=== PATIENT | female | born 1980 | race Asian ===

== ENCOUNTER → 2023-09-27 10:22 | Outpatient (REF) | payer OTHER, SELFPAY | LOC: HWWDC 10:22 | PROVIDERS: ATTENDING PHYSICIAN Family Medicine | DX: Z12.31 Encounter for screening mammogram for malignant neoplasm of breast (principal) | CPT/HCPCS: 77063; 77067 ==

== ENCOUNTER → 2023-12-21 09:00 | Outpatient (REF) | payer OTHER, SELFPAY | LOC: HWRCS 09:00 | PROVIDERS: ATTENDING PHYSICIAN Family Medicine | DX: Q23.1 Congenital insufficiency of aortic valve (principal) | CPT/HCPCS: 93306 ==

== ENCOUNTER 2023-12-30 15:50 | Emergency (ER) | payer OTHER, SELFPAY ==
[2023-12-30 15:55] VITALS: BP 171/104
[2023-12-30 16:16] LABS: % Basophils 0.5 % (0-2); % Immature Granulocytes 0.3 % (0-0.5); % Lymphocytes 38.9 % (20.5-51.1); % Neutrophils 47.3 % (42.2-75.2); Absolute Eosinophils 0.4 10^3/uL (0-0.7); Absolute Monocytes 0.6 10^3/uL (0.1-0.6); Absolute Neutrophils 3.6 10^3/uL (1.4-6.5); Hematocrit 36.5 % (37.0-47.0); Hemoglobin 12.4 g/dL (12.0-16.0); Mean Corpuscular Volume 85.3 fL (81.0-99.0); Mean Platelet Volume 8.8 fL (7.4-10.4); Nucleated Red Blood Cells % 0 %; Platelet Count 263 10^3/uL (130-400); Red Blood Cell Count 4.28 10^6/uL (4.20-5.40); Red Cell Dist. Width 12.4 % (11.5-14.5); White Blood Cell Count 7.7 10^3/uL (4.8-10.8)
[2023-12-30 16:42] LABS: Troponin I < 0.012 ng/ml
[2023-12-30 16:44] VITALS: BP 156/91
[2023-12-30 16:47] LABS: ALT (SGPT) 11 U/L (0-35); AST (SGOT) 17 U/L (14-36); Albumin 4.1 g/dl (3.5-5.0); Alkaline Phosphatase 55 U/L (38-126); Blood Urea Nitrogen 13 mg/dl (7-17); Calcium 9.3 mg/dl (8.4-10.2); Carbon Dioxide 20 mmol/L (22-30); Chloride 106 mmol/L (98-107); Glucose 92 mg/dl (70-99); Sodium 140 mmol/L (135-145); Total Bilirubin 0.3 mg/dl (0.2-1.3); Total Protein 6.8 g/dl (6.3-8.2); eGFR > 60.00
[2023-12-30 17:00] VITALS: BP 148/92
[2023-12-30 17:38] VITALS: BMI 34.7
--- NOTE | 2023-12-30 17:58 | ED.GENMED ---
History of Present Illness
General
Chief Complaint: Blood Pressure Problem
Source: patient
Exam Limitations: none
Time Seen by Provider: 12/30/23 17:36
Nursing documentation reviewed up to this point in time: agreed with
History of Present Illness
History of Present Illness:
Patient to ED with complaint of elevated BP readings at home. She states she started checking her BP yesterday and is getting readings of 140's-150's/90's. She states she was diagnosed with a heart murmur 10 years ago and was told as she
approaches age 48 new symptoms may occur such as fatigue. States she had a routine echo done recently and bicuspid aoortic valve revealed. She has been evaluated by cardiology and will be evaluated by CT. No history of HTN. Admits to feeling
very anxious. Brought to ED by family for eval.
Past History
Past History
ED Past Medical History: Hypothyroidism
ED Past Surgical History: None
Review of Systems
Review of Systems
Allergies reviewed?: Yes
All Other Systems: ROS reviewed and negative except as documented in HPI and ROS
Constitutional: Reports no symptoms
EENT: Reports no symptoms
Respiratory: Reports no symptoms
Cardiac: Reports no symptoms (elevated BP readings at home)
ABD/GI: Reports no symptoms
: Reports no symptoms
Musculoskeletal: Reports no symptoms
Skin: Reports no symptoms
Neurological: Reports no symptoms
Psychiatric: Reports no symptoms
Phy Exam
General Physical Exam
General Presentation: well appearing and no apparent distress
General age: appears stated age
General Skin: warm and dry
General Habitus: normal
General Mental: alert
Cardiovascular Exam
Cardiovascular Exam: regular rate/rhythm
Pulmonary Exam
Pulmonary Exam: lungs clear and no respiratory distress
Musculoskeletal Exam
Musculoskeletal Exam: full ROM and neuro vasc intact
Skin Exam
Skin Exam: normal color, warm/dry and no rash
Psychiatric Exam
Psychiatric Exam: normal mood/affect
Course
Orders/Labs/Results
Orders:
Orders
12/30/23 16:00
Electrocardiogram (*1) Urgent
Reason for Study: Hypertension, Benign
12/30/23 16:01
EKG- Treatment ONCE
12/30/23 16:12
Complete Blood Count/With Diff Urgent
Comprehensive Metabolic Panel Urgent
Troponin I Urgent
Abnormal Lab Results
12/30/23
16:12
Hct 36.5 L %
(37.0-47.0)
Carbon Dioxide 20 L mmol/L
(22-30)
12/30/23 16:12
12/30/23 16:12
Vital Signs
Initial and Last Documented VS:
Initial Vital Signs
Temp Pulse Resp BP Pulse Ox
97.6 F 76 17 171/104 97
12/30/23 15:55 12/30/23 15:55 12/30/23 15:55 12/30/23 15:55 12/30/23 15:55
Last Documented Vital Signs
Temp Pulse Resp BP Pulse Ox
97.6 F 64 14 158/87 100
12/30/23 15:55 12/30/23 18:00 12/30/23 18:00 12/30/23 18:00 12/30/23 17:40
*Pulse Oximetry
Patient hypoxic: no
*EKG
Interpretation: normal
Rate: normal
Rhythm: sinus
*Critical Care Note
Total Time (30-74mins, 75-104mins- exclusive of procedures): Not Applicable
Update Note
Update Note:
MIldly elevated BP while iin dept. Labs, EKG reviewed with her. She will continue to log home BP readings and share with cardiology. No pharm intervention at this time. She just started monitoring BP yesterday. WIll discharge home. Given
instructions on s/s to return to ED and she is agreeble to plan.
ED Attending Note
-
Portions of this chart may have been created with voice recognition software.� Occasional wrong word or��sound alike� substitutions may have occurred due to the inherent limitations of voice recognition software.
Discharge Plan
Departure
Patient Disposition: Home (Routine Discharge)
Date of Disposition: 12/30/23
Time of Disposition: 17:58
Patient with high blood pressure during this ER visit?: Yes
Condition: Good
Covid-19: Not Applicable
Discharge Problem:
Elevated blood pressure reading
Instructions: Checking your blood pressure at home, BLOOD PRESSURE
Referrals:
Razia Leal, [Family Provider] -
Interventions
Interventions:
*Risk Screen - Suicide Last Done: 12/30/23 15:55
*General Assessment Last Done: 12/30/23 15:55
*Neglect/Abuse Screening Last Done: 12/30/23 15:55
ED- Fall Risk Assessment Last Done: 12/30/23 17:38
*ED COVID-19 Vaccine History Last Done: 12/30/23 17:39
*Nursing Disposition Last Done: 12/30/23 18:12
ED- Cardiac Assessment Last Done: 12/30/23 17:40
ED- Neurological Assessment Last Done: 12/30/23 17:40
ED- Pulmonary Assessment Last Done: 12/30/23 17:40
Discharge Date and Time
Print Language: HUNGARIAN
[2023-12-30 18:00] VITALS: BP 158/87
== END 2023-12-30 18:18 | disposition home or self-care (01) ==
LOC: EMR 15:50
PROVIDERS: Emergency Medicine; EMERGENCY PHYSICIAN Emergency Medicine; FAMILY PHYSICIAN Family Medicine
DX: R03.0 Elevated blood-pressure reading, without diagnosis of hypertension (principal); E03.9 Hypothyroidism, unspecified
CPT/HCPCS: 99284; 80053; 84484; 85025; 93005

== ENCOUNTER → 2024-01-01 15:02 | Outpatient (REF) | payer OTHER, SELFPAY | LOC: HWRAD 15:02 | PROVIDERS: ATTENDING PHYSICIAN Internal Medicine Cardiovascular Disease; FAMILY PHYSICIAN Family Medicine | DX: I77.819 Aortic ectasia, unspecified site (principal) | CPT/HCPCS: 71275; Q9967 ==

== ENCOUNTER → 2024-03-10 09:20 | Outpatient (REF) | payer OTHER, SELFPAY | LOC: RCS 09:20 | PROVIDERS: ATTENDING PHYSICIAN Internal Medicine Cardiovascular Disease; FAMILY PHYSICIAN Family Medicine | DX: I35.0 Nonrheumatic aortic (valve) stenosis (principal); I77.819 Aortic ectasia, unspecified site | CPT/HCPCS: 93306 ==

== ENCOUNTER 2024-06-23 06:21 | Day surgery (SDC) | payer OTHER, SELFPAY ==
[2024-06-23] VITALS (17 sets, daily range): BP systolic 92–132; BP diastolic 69–89; BMI 34.2
[2024-06-23 07:09] LABS: HCG, Urine Qualitative Screen Negative
[2024-06-23] MEDS: NSS 263 ML IV (07:18)
[2024-06-23] MEDS: LOW STRENGTH ASPIRIN 324 MG PO (07:22)
[2024-06-23] MEDS: NSS 1000 IV (09:13)
--- NOTE | 2024-06-23 09:32 | ITS.CL.CATH ---
Gluer Machine Operator - Catheterization
Cardiac Catheterization
Procedure Report:
LEFT HEART CATHETERIZATION
Date of Procedure: June 23, 2024
Referring: Dr. Humaira Trejo
PROCEDURES:
1. Coronary angiography
INDICATION: This is a 44-year-old female with a past medical history notable for bicuspid aortic valve and mild aortic root dilation who is scheduled for aortic valve replacement within the next several months. She has been evaluated by Dr. Cordova
and is now referred for coronary angiography.
ACCESS: Right radial artery, 5 Ukrainian sheath
HEMODYNAMICS : (mmHg)
AO (s/d) : 112/84
CORONARY FINDINGS
DOMINANCE: Right
LEFT MAIN: Normal
LEFT ANTERIOR DESCENDING: The LAD arises normally from the left main and runs in the anterior interventricular groove. The LAD has only minor irregularities over its course with no focal obstructive stenosis.
CIRCUMFLEX: The circumflex is a medium caliber nondominant vessel. The circumflex gives rise to 2 obtuse marginal branches which are widely patent.
RIGHT CORONARY ARTERY: The right coronary artery is a dominant vessel with a very anterior origin from the aorta. The right coronary artery is widely patent over its course
SEDATION: 50 minutes of procedural sedation was utilized. An independent medical billing coordinator was present to assist with and help manage/monitor the patient's level of consciousness and physiologic status
RADIATION SUMMARY: Fluoro Time (min): 17.8, Dose (mGy): 690, DAP (Gy.cm2) : 56.6
Closure Device: TR band
CONCLUSIONS
1. Nonobstructive coronary disease
RECOMMENDATIONS
1. Follow with Dr. Cordova as scheduled for aortic valve replacement
Copy to: Dr. Humaira Trejo
[2024-06-23] MEDS: NSS 250 IV (12:15)
== END 2024-06-23 12:48 | disposition home or self-care (01) ==
LOC: CATH 06:21
PROVIDERS: ATTENDING PHYSICIAN Internal Medicine Interventional Cardiology; FAMILY PHYSICIAN Family Medicine; OTHER PHYSICIAN Internal Medicine Cardiovascular Disease
DX: I25.10 Atherosclerotic heart disease of native coronary artery without angina pectoris (principal); I35.0 Nonrheumatic aortic (valve) stenosis; I10 Essential (primary) hypertension; Z79.890 Hormone replacement therapy
CPT/HCPCS: 99152; 81025; 93454; 93458; 99153; C1894; Q9967

== ENCOUNTER → 2024-06-30 09:07 | Outpatient (REF) | payer OTHER, SELFPAY | LOC: RCS 09:07 | PROVIDERS: ATTENDING PHYSICIAN Nurse Practitioner Acute Care; FAMILY PHYSICIAN Family Medicine; REFERRING PHYSICIAN Internal Medicine Cardiovascular Disease | DX: I35.0 Nonrheumatic aortic (valve) stenosis (principal) | CPT/HCPCS: 93306 ==

== ENCOUNTER 2024-09-09 07:32 | Inpatient (IN) | payer OTHER, SELFPAY ==
[2024-09-05 12:39] VITALS: BMI 34.1
[2024-09-05 13:18] LABS: % Basophils 0.3 % (0-2); % Eosinophils 3.7 % (0-6); % Immature Granulocytes 0.3 % (0-0.5); % Lymphocytes 28.7 % (20.5-51.1); % Monocytes 6.6 % (1.7-9.3); % Neutrophils 60.4 % (42.2-75.2); Absolute Eosinophils 0.3 10^3/uL (0-0.7); Absolute Lymphocytes 2.6 10^3/uL (1.2-3.4); Absolute Monocytes 0.6 10^3/uL (0.1-0.6); Absolute Neutrophils 5.4 10^3/uL (1.4-6.5); Hematocrit 39.7 % (37.0-47.0); Hemoglobin 13.4 g/dL (12.0-16.0); Mean Corp Hgb Conc. 33.8 g/dL (33.0-37.0); Mean Corpuscular Hgb 29.5 pg (27.0-31.0); Mean Corpuscular Volume 87.4 fL (81.0-99.0); Mean Platelet Volume 9.3 fL (7.4-10.4); Nucleated Red Blood Cells % 0 %; Platelet Count 282 10^3/uL (130-400); Red Blood Cell Count 4.54 10^6/uL (4.20-5.40); Red Cell Dist. Width 12.3 % (11.5-14.5)
[2024-09-05 13:30] LABS: INR 1.06; PT 14.1 Sec (11.4-14.6)
[2024-09-05 13:31] LABS: APTT 27.9 Sec (23.4-35.0)
[2024-09-05 13:37] LABS: Urine Albumin 1+ (Neg - Trace); Urine Bilirubin Negative (Negative); Urine Character Clear (Clear); Urine Color Yellow; Urine Glucose Negative (Negative); Urine Ketone Negative (Negative); Urine Leukocyte 2+ (Negative); Urine Nitrite Negative (Negative); Urine Occult Blood 2+ (Negative); Urine Specific Gravity 1.015 (<1.030); Urine Urobilinogen Negative (Neg - 1+)
[2024-09-05 13:44] LABS: ALT (SGPT) 13 U/L (0-35); AST (SGOT) 17 U/L (14-36); Albumin 4.6 g/dl (3.5-5.0); Alkaline Phosphatase 57 U/L (38-126); Blood Urea Nitrogen 11 mg/dl (7-17); Calcium 9.7 mg/dl (8.4-10.2); Carbon Dioxide 24 mmol/L (22-30); Chloride 104 mmol/L (98-107); Estimated Creatinine Clearance 96 ml/min; Glucose 76 mg/dl (70-99); Potassium 4.3 mmol/L (3.5-5.1); Sodium 137 mmol/L (135-145); Total Bilirubin 0.4 mg/dl (0.2-1.3); Total Protein 7.9 g/dl (6.3-8.2); eGFR > 60.00
[2024-09-05 14:36] LABS: Glycohemoglobin (HgbA1c) 5.4 % (4.0-5.6)
[2024-09-05 14:41] LABS: Urine Squamous Cell >30 /LPF (Few)
[2024-09-05 14:42] LABS: Urine Bacteria Few (Negative); Urine White Cell 16-20 /HPF (0-5)
--- NOTE | 2024-09-05 14:48 | CM ---
Met with and Mrs. Suh in [facility]'s. She states prior to admission she resides with her spouse and thirteen year old daughter in a two story home with one step to enter. She states she has a full flight of steps to get to bedroom/full bathroom.
She states she has a powder room on the first floor. She states prior to admission she was independent with ambulation and adls. She states she does not have any DME in the home. She states she has a prescription plan. She states her spouse will
be home to assist in her care in needed. The discharge plan is to return home with her spouse and daughter and a home visit by the Transitional Care Nurse when medically stable.
We reviewed pre-op and post-op routines. We reviewed the shower instructions. She has the soap, written instructions and the Cardiothoracic Surgery Educational Booklet. We also reviewed restrictions including sternal precautions and driving
restrictions. We discussed a home visit by the Transitional Care Nurse. She is agreeable to a home visit. The plan is for AVR on August,[id number].
[2024-09-09] VITALS (21 sets, daily range): BP systolic 98–138; BP diastolic 64–96; BMI 36.2
--- NOTE | 2024-09-09 07:56 | PTCARENOTE ---
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 pt clipped and prepped w G. Admission questions and med rec completed. Pt oriented to CVICU. Plan of care reviewed and questions encouraged.
[2024-09-09] MEDS: MAGNESIUM OXIDE 500 MG PO (08:06)
[2024-09-09] MEDS: LOPRESSOR 25 MG PO (08:06)
[2024-09-09] MEDS: PROTONIX 40 MG PO (08:06)
[2024-09-09] MEDS: BACTROBAN 2% OINTMENT 1 APPLIC NASAL ×2 (08:06→20:35)
[2024-09-09 09:30] LABS: HCG, Urine Qualitative Screen Negative
[2024-09-09 11:19] LABS: ACT+ - POC 225 Seconds (82-134)
--- NOTE | 2024-09-09 11:25 | W.CVOR.SURPR ---
CVOR Surgeon Immed Pre Op
-
I have examined this patient prior to performance of the scheduled procedure.
The patient's condition is unchanged from the time of the dictated/written History and
Physical and the patient is able to undergo the scheduled procedure.
[facility]
[2024-09-09 11:26] LABS: ACT+ - POC 134 Seconds (82-134)
[2024-09-09 12:03] LABS: Urine Albumin Negative (Neg - Trace); Urine Bilirubin Negative (Negative); Urine Character Clear (Clear); Urine Color Yellow; Urine Glucose Negative (Negative); Urine Ketone Negative (Negative); Urine Leukocyte Negative (Negative); Urine Nitrite Negative (Negative); Urine Occult Blood 4+ (Negative); Urine Urobilinogen Negative (Neg - 1+)
[2024-09-09 12:10] LABS: B.E. - POC -1.1 mmol/L; Glucose - POC 81 mg/dl (70-99); HCO3 - POC 24 mmol/L (21-28); Hematocrit - POC 33 % PCV (37-47); Hemodilution- POC No; Hemoglobin Calculated - POC 11.1; Ionized Calcium - POC 1.15 mmol/L (1.15-1.33); Lactate - POC 1.16 mmol/L (0.36-0.75); O2 Saturation %Calculated-POC 99.8 % (94-98); PCO2 - POC 40 mmHg (35-48); PO2 - POC 233 mmHg (83-108); POC Comment PRE; Potassium - POC 3.6 mmol/L (3.5-5.1); Sodium - POC 142 mmol/L (136-145); Specimen Type - POC Arterial; pH - POC 7.39 (7.35-7.45)
[2024-09-09 12:31] LABS: B.E. - POC -2.6 mmol/L; Glucose - POC 73 mg/dl (70-99); HCO3 - POC 22 mmol/L (21-28); Hematocrit - POC 29 % PCV (37-47); Hemodilution- POC No; Hemoglobin Calculated - POC 9.8; Ionized Calcium - POC 1.08 mmol/L (1.15-1.33); Lactate - POC 1.24 mmol/L (0.36-0.75); O2 Saturation %Calculated-POC 99.7 % (94-98); PCO2 - POC 38 mmHg (35-48); PO2 - POC 202 mmHg (83-108); Potassium - POC 3.8 mmol/L (3.5-5.1); Sodium - POC 144 mmol/L (136-145); Specimen Type - POC Arterial; pH - POC 7.37 (7.35-7.45)
[2024-09-09 13:19] LABS: B.E. - POC 0.2 mmol/L; Glucose - POC 101 mg/dl (70-99); HCO3 - POC 23 mmol/L (21-28); Hematocrit - POC 28 % PCV (37-47); Hemodilution- POC Yes; Hemoglobin Calculated - POC 9.5; Ionized Calcium - POC 0.97 mmol/L (1.15-1.33); Lactate - POC 1.01 mmol/L (0.36-0.75); PCO2 - POC 30 mmHg (35-48); PO2 - POC 382 mmHg (83-108); POC Comment CPB; Potassium - POC 4.5 mmol/L (3.5-5.1); Sodium - POC 141 mmol/L (136-145); Specimen Type - POC Arterial; pH - POC 7.49 (7.35-7.45)
[2024-09-09 13:47] LABS: Urine Amorphous Seen; Urine Red Blood Cell 30-40 /HPF (0-2); Urine White Cell 0-2 /HPF (0-5)
[2024-09-09 13:48] LABS: B.E. - POC 0.5 mmol/L; Glucose - POC 125 mg/dl (70-99); HCO3 - POC 24 mmol/L (21-28); Hematocrit - POC 29 % PCV (37-47); Hemodilution- POC Yes; Hemoglobin Calculated - POC 9.9; Ionized Calcium - POC 1.03 mmol/L (1.15-1.33); Lactate - POC 1.11 mmol/L (0.36-0.75); O2 Saturation %Calculated-POC 99.9 % (94-98); PCO2 - POC 35 mmHg (35-48); PO2 - POC 316 mmHg (83-108); POC Comment WARM; Potassium - POC 4.6 mmol/L (3.5-5.1); Sodium - POC 143 mmol/L (136-145); Specimen Type - POC Arterial; pH - POC 7.45 (7.35-7.45)
[2024-09-09 13:59] LABS: ACT+ - POC 134 Seconds (82-134)
[2024-09-09 14:06] LABS: B.E. - POC -3.8 mmol/L; Glucose - POC 117 mg/dl (70-99); HCO3 - POC 22 mmol/L (21-28); Hematocrit - POC 26 % PCV (37-47); Hemodilution- POC Yes; Hemoglobin Calculated - POC 8.7; Ionized Calcium - POC 1.21 mmol/L (1.15-1.33); Lactate - POC 1.92 mmol/L (0.36-0.75); O2 Saturation %Calculated-POC 99.6 % (94-98); PCO2 - POC 43 mmHg (35-48); PO2 - POC 199 mmHg (83-108); POC Comment POST; Potassium - POC 3.8 mmol/L (3.5-5.1); Sodium - POC 143 mmol/L (136-145); Specimen Type - POC Arterial; pH - POC 7.32 (7.35-7.45)
--- NOTE | 2024-09-09 14:13 | CON.INTV ---
Consultation
Consultation Request
Date/Time Consultation Requested: 09/09/2024 - 140
Date/Time Consultation Performed: 09/09/2024 - 1412
Requesting Provider: Anna Estrada PA-C
Performing Provider: Dr. Morrison
Reason for Consultation: s/p SAVR
Medical History
-
Chief Complaint: Elective aortic valve replacement
History of Present Illness:
44-year-old female non-smoker with a past medical history of severe aortic valve stenosis, hypothyroidism, CAD, hypertension, and mild aortic ectasia who presents for elective aortic valve replacement. Patient known to the cardiothoracic surgery
service with last visit on 07/18/[address] Cordova. Patient has known severe aortic valve stenosis with mild aortic root dilation, seen on recent echo from 06/30/2024. Peak/mean gradients across the AVR 87/55 mmHg, respectively with an XANDER of 0.63
cm�. Since the echocardiogram in February 2024 her aortic stenosis had worsened going from a mean gradient of 39 up to 55 mmHg with the XANDER decreasing from 0.8 to 0.63 cm�. Patient discussed surgical intervention with Dr. Cordova and patient has
agreed to a cardiothoracic procedure, and today she underwent a mini-sternotomy with surgical aortic valve replacement with a 21 mm mechanical aortic valve. There were no immediate complications and she was transferred to the CVICU postoperatively
with Carbonating Stone Cleaner services consulted for additional management/recommendations.
When I saw the patient, she was intubated on a pressure support trial at 5/5 at 40% FiO2 with PIP 11 cmH2O, VTe 431 cc and breathing at 16 breaths/min. She's saturating 98% with heart rate 81, BP via A-line: 114/62, PAP 26/12, and CO/CI: 4.74/2.43,
respectively. Mediastinal chest tube x [address]. Currently sedated on Precedex at 0.1 mcg/kg/hr and on insulin drip at 1.5 units/hr.
PMHx: Aortic valve stenosis, bicuspid aortic valve, hypothyroidism, PCOS, bicuspid aortic valve, CAD, hypertension, history of constipation, mild aortic ectasia
PSHx: Noncontributory
Past Medical History
Past Medical History: Other (Above as per HPI)
Past Surgical History: Other (Above as per HPI)
Social History
Tobacco: Non-smoker
Alcohol: Occasional (Wine occasionally)
Drug: None
Personal:
Living: With Family
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
Family History
Family History: CAD (Father + mother), Diabetes (Mother), Hypertension (Mother) and Other (Father: Hyperlipidemia; Daughter: PDA repair as an infant)
Allergies / Home Medications
Allergies
Allergy/AdvReac Type Severity Reaction Status Date / Time
adhesive tape Allergy SENSITIVITY Verified 09/02/24 16:24
Home Medications
�Medication �Instructions �Recorded �Confirmed �Last Taken �Type
cholecalciferol (vitamin D3) 25 25 mcg PO HS 06/23/24 09/09/24 09/01/24 History
mcg (1,000 unit) capsule (Vitamin
D3)
cyanocobalamin (vitamin B-12) 500 500 mcg PO HS 06/23/24 09/09/24 09/01/24 History
mcg tablet (Vitamin B-12)
desogestrel 0.15 mg-ethinyl 1 tab PO HS 06/23/24 09/09/24 09/01/24 History
estradiol 0.03 mg tablet (Apri)
ferrous sulfate 325 mg (65 mg 325 mg PO HS 06/23/24 09/09/24 09/07/24 History
iron) tablet (iron)
levothyroxine 150 mcg tablet 150 mcg PO DAILY 06/23/24 09/09/24 09/09/24 05:00 History
losartan 50 mg-hydrochlorothiazide 1 tab PO HS 06/23/24 09/09/24 09/06/24 History
12.5 mg tablet
metformin 500 mg tablet,extended 500 mg PO HS 06/23/24 09/09/24 09/07/24 17:00 History
release 24 hr
Review of Systems
-
Unable to Obtain full review of systems at this time due to: Patient Intubation
Vitals / Labs / Diagnostic Testing
Vital Signs
Temp Pulse Resp BP Pulse Ox
98.1 F 79 18 138/96 100
09/09/24 08:01 09/09/24 08:01 09/09/24 08:01 09/09/24 07:46 09/09/24 08:01
Microbiology
09/05/24 12:34 Nose MRSA Screen - Final
No Methicillin Resistant Staphylococcus aureus isolated.
Diagnostic Testing:
Physical Exam
-
HEENT: Normocephalic, Anicteric and Other (ETT in place)
Cardiovascular: S1/S2 and Peripheral Edema (negative)
Respiratory: Wheeze (negative), Rhonchi (negative), Other (Mechanical breath sounds heard bilaterally) and Other (Mediastinal chest tube x 1)
GI: Soft, Non Distended, Non Tender and Normal Bowel Sounds
Neurology: Tremors (negative) and Other (Sedated)
Skin: Warm and Dry
General: Respiratory Distress (negative), Comfortable, Fever (negative) and Chills (negative)
Assessment
-
Assessment: 44-year-old female non-smoker with a past medical history of severe aortic valve stenosis, hypothyroidism, CAD, hypertension, and mild aortic ectasia who presents for elective aortic valve replacement. Patient known to the
cardiothoracic surgery service with last visit on 07/18/[address] Cordova. Patient has known severe aortic valve stenosis with mild aortic root dilation, seen on recent echo from 06/30/2024. Peak/mean gradients across the AVR 87/55 mmHg,
respectively with an XANDER of 0.63 cm�. Since the echocardiogram in February 2024 her aortic stenosis had worsened going from a mean gradient of 39 up to 55 mmHg with the XANDER decreasing from 0.8 to 0.63 cm�. Patient discussed surgical intervention
with Dr. Cordova and patient has agreed to a cardiothoracic procedure, and on 09/09/2024 she underwent a mini-sternotomy with surgical aortic valve replacement with a 21 mm mechanical aortic valve. There were no immediate complications and she was
transferred to the CVICU postoperatively with Carbonating Stone Cleaner services consulted for additional management/recommendations
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
Impression:
#Bicuspid aortic valve with severe aortic valve stenosis s/p mini-sternotomy with surgical aortic valve replacement with 21 mm mechanical aortic valve (POD #0)
#Lactic acidosis
#Hypocalcemia
#Hypothyroidism
#PCOS
#Nonobstructive CAD
#Hypertension
Plan:
Ventilator settings reviewed
FiO2 will be weaned to maintain SpO2 >90-94%
Minute ventilation will be adjusted
Arterial blood gases will be monitored
Spontaneous breathing trial will be attempted with hopeful extubation after anesthesia/sedation wear off
prn nebulized bronchodilators - not currently bronchospastic
Pulmonary artery catheter parameters will be followed
Pressors/antihypertensive/inotropes/diuretics will be provided as needed
Maintain MAP>65
Replete electrolytes with K>4, Mg>2
Monitor chest tube output (mediastinal chest tube x 1)
Monitor hemoglobin
Monitor platelet count and coags
Transfuse blood products as needed to maintain Hb>7g/dL, plt>50k (given post-operative status)
CT surgery managing chest tubes
Monitor blood sugar to maintain euglycemia with goal BG 110-140
Insulin drip per protocol
Aspiration precautions
VAP prevention protocol
DVT prophylaxis
Early nutrition
Early mobilization
Critical care statement: A total of 46 minutes of critical care time was provided for this patient today. This includes management of ventilator, spontaneous breathing trial, arterial blood gases, pressors, of unstable vital signs, evaluation of the
patient at bedside, reviewing the patient's pertinent medical records including radiographs, microbiology, laboratory evaluations, and discussion with primary team and critical care nursing.
--- NOTE | 2024-09-09 14:26 | W.PN.CT.SURG ---
CT Surgery Operative Note
-
CARDIAC SURGERY OPERATIVE REPORT
Preoperative Diagnosis: Aortic valve true type 0 bicuspid morphology with severe stenosis
Postoperative Diagnosis: Same
Procedure(s) Performed:
1. Upper mini sternotomy to the third intercostal space with central aortic and peripheral venous cannulation
2. Surgical aortic valve replacement [21 mm mechanical aortic valve]
3. Placement of temporary ventricular pacing wire
4. Transesophageal echocardiography
Date of Surgery: 09/09/2024
Comorbidities:
1. Bicuspid aortic valve, type 0 morphology
2. Severe aortic valve stenosis, symptomatic
3. Moderate left ventricular hypertrophy with mild LVOT gradient
4. Hypothyroidism
5. PCOS
6. Nonobstructive CAD
7. Hypertension
8. Mild aortic ectasia, ascending aorta
Attending Surgeon: Shayne Cordova MD, MS
Scrub and Circulating RNs: Dawna Colunga RN, Cira Powell RN
Assistants: Anna Munson PA-C (first assisted, tissue exposure, retraction, wound closure, etc. under my direction)
Anesthesiology: Dio Card MD and Aleena Marshall CRNA
Athletic Shoe Designer: Candice Sears CCP
Anesthesia: GETA
EBL: per perfusion records
Products: None, 250 of cell saver scavenged from the field
CPB Time: 68 minutes
Aortic Cross Clamp Time: 50 minutes
Indication(s) for Procedures: This is a 44-year-old female been following for quite some time. She has known severe aortic valve stenosis however was asymptomatic initially. More recently over the last several weeks she has become significantly
symptomatic and unable to load and unload the button maker. Given her sudden change in symptoms, severe gradients, we moved her surgery forward. She is offered a mechanical valve which is reasonable for her age category.
Aortic Valve Description: True bicuspid valve, type 0 morphology with no raphae, left and right coronary ostia the normal anatomic positions with a very large left main
Findings: Left ventricular ejection fraction preoperatively 60% with no regional wall motion abnormalities. She did have moderate hypertrophy of the left ventricle and severe aortic valve stenosis. Following surgery, her left ventricular ejection
fraction increased to approximately 70% with no inotropic support. There was close to obliteration of her LV cavity with age contraction. Cardiac index was well over 3 without inotropic support. Mean gradient across the new mechanical valve was 8
mmHg, LVOT gradient was also 8 mmHg indicating some subvalvular component given her hypertrophy. There were no paravalvular leaks only of the associated washing jets expected with this mechanical prosthesis. Both leaflets had excellent excursion
on the device. A total of 12 nonpledgeted 2 Ethibond sutures [1 was pledgeted at the left non commissure as the tissue appeared to be friable here] securing a 21 [address] prosthesis [address] place using core knots. Left and right coronary ostia
were inspected and free of any obstruction. The valve was oriented in an antianatomic fashion perpendicular to the aorto mitral curtain. She did not require any inotropic support. She did not require any blood products and received 250 cc of
scavenged blood from the field in the form of Cell Saver. She regained sinus rhythm after a very short period of ventricular pacing.
Specimen(s): Aortic valve with.
Prosthesis:
1. 21 mm On-X mechanical aortic valve prosthesis, serial #[id number]
2. [place] hemostatic agent, serial number [id number]
3. X plate (8 holes) plate + 12mm screws x 6, 16mm screw x 2
4. Straight (8 hold) plate + 12mm screws x 6
Description of Procedure: The patient was taken to the operating room. Their identity and procedure to be performed were verified and they were positioned supine on the operating table. Induction via general anesthesia with endotracheal intubation
was performed and central venous access and arterial monitoring were inserted. A preoperative transesophageal echocardiogram was performed to assess cardiac function and valvular function. The patient was then prepped and draped from chin to feet in
a sterile fashion. A preoperative time-out was performed with all members of the team present. A upper midline chest incision was performed along with vince sternotomy, T-ing at the 3rd intercostal space. The innominate vein was isolated. Full
heparinization was given (a total of 50,000 units). We created a pericardial well. The aortic cannulation site was chosen where it was soft, pliable, and free of calcium. Common femoral vein access was done under ultrasound guidance using Seldinger
technique. Venous cannulation was done under CALI guidance. The arterial cannula was inserted in the ascending aorta. The arterial cannula line had an appropriate bounce and correlating pressures with test dosing. Next, a root vent/antegrade cannula
was inserted into the ascending aorta. The ACT was confirmed to be over 400 and retrograde autologous priming was performed before commencing cardiopulmonary bypass. The pulmonary artery was away from the aorta to facilitate a clamp site
and aortotomy. A pulmonary vent was placed right superior pulmonary vein and secured. The aortic cross-clamp was applied after decreasing the flow on the bypass and mean arterial pressure. A total of 1.2L initial dose of antegrade Del-Nido
cardioplegia solution was given and planned for re-dosing every 75 minutes as necessary. There was rapid electro-mechanical arrest of the heart at 300 cc of cardioplegia. The left ventricle was observed for distention on echocardiogram and manual
palpation. Cold slush was placed into the pericardial well and cooled to 34 degrees centigrade.
Carbon dioxide was used to flood the field. We manually identified the location of the right coronary take off. An aortotomy was made approximately 2cm above the sinotubular junction. The location of both left and right coronary vessels were
visualized in the root.The leaflets were excised and sent for pathological assessment. The annulus was debrided of any calcium being mindful of the annulus and membranous septum. The root and left ventricular outflow tract were thoroughly irrigated
to remove any debris. A total of 12 Non-pledgeted (1 was pledgetted toward the L N commissure) 2-0 ethibond annular sutures were placed [id number] circumferentially. These were brought through the sewing cuff of the prosthetic valve which as then
parachuted into place. The left and right coronary ostia were visualized and were unobstructed by the valve. A Cor-Knot device was used to secure the annular sutures. The valve was inspected and was well seated. Ventricular pacing wires placed at
the base of the RV after retracting the heart cephalad. The aortotomy was approximated with 4-0 prolene in two layers. De-airing maneuvers were performed and temporary bipolar ventricular pacing wires were placed on the base of the right ventricle.
The patient was placed in a trendelenburg position and flows on bypass were lowered. The aortic cross clamp was removed and flows were slowly brought back up. The aortotomy appeared hemostatic. Transesophageal echocardiography revealed no
paravalvular leak and appropriate prosthetic function with it's 4 washing jets. Once de-airing was satisfactory, the LV and root vents were removed. After verifying acceptable parameters, we initiated weaning from cardiopulmonary bypass. Once we
were off cardiopulmonary bypass, the venous cannula was clamped and removed. A test dose of protamine was administered and the patient was monitored for any adverse reaction before resuming protamine. Once half of the protamine dose was delivered,
pump suckers were turned off and the systolic blood pressure was lowered for aortic decannulation. The aortic cannula was removed and pursestrings were tied down. All cannulation sites were oversewn with a 4-0 prolene. The aortotomy suture line was
inspected and hemostasis was confirmed. Mediastinal hemostasis was obtained. One 24Fr Elio drains were placed within the pericardium. The sternum was approximated with 2 #7 stainless steel wires, a signle #8 double stainless steel wire, an X plate
and a straight plate. Fascia was approximated with #1 vicryl suture. The subcutaneous, dermis and epidermis were closed in layers in a running fashion. The femoral venous access site was closed with a large buttressed pursestring. The skin wound was
cleansed and dressed.
All instrument, sponge, and needle counts were confirmed to be correct x 2 at the end of the operation. The patient was transferred to the cardiac intensive care unit in critical but stable condition.
I, Dr. Shayne Cordova, was present, scrubbed for, and performed all critical elements of this procedure.
Shayne Cordova MD, MS
Cardiothoracic Surgeon
[facility]
This operative dictation was created using the [employer]St[employer] dictation system. Please excuse any grammatical, typographical, or 'sound alike' errors
--- NOTE | 2024-09-09 14:31 | W.PN.UPDATE ---
Update Note
Progress Note Update
IV fluids: 1000
Crystalloid: 1000
U.O.: 400
UF: 1100
Blood: None
Wires: V
Inotropes: none
Pressors: levophed on standby
Sedatives: precedex
NEURO: sedated on precedex, pupils +2mm B/L
RESP: #8OT @24cm> 12/600/40/5; Lungs clear B/L. 2 mediastinal (10cc on arrival) chest tubes to -20cm suction. Sanguineous drainage
CV: RRR +S1, S2, no S3, no rub, no murmur. Dermabond to median sternotomy. RIJ w/[place] locked @ 39cm. PA 33/14; CI 2.96
ABD: round, soft, no BS
EXT: no edema, +2/4 DP pulses B/L, no femoral bruit, right radial A-line intact
: Graves with clear yellow urine
A/P: POD #0 s/p Surgical aortic valve replacement [21 mm mechanical aortic valve] via mini-sternotomy
CALI: EF Overall LVEF is at least 65% with no new RWMA. The AVR is well seated allowing normal tilting disc motion. No AI.
- wean and extubate
- Monitor CT and urine output
- Follow up labs and CXR
- SBP goal 90-130
- Will start ASA tonight; will start coumadin and low dose heparin tomorrow
- EKG pending and will send to cards; prolong QTC will continue to monitor
- Cards consulted
- will need instruction regarding antibiotic prophylaxis for dental and invasive procedures
# acute surgical blood loss anemia-expected
- trend CBC
# DM2
- Continue insulin gtt
- will resume metformin as able
--- NOTE | 2024-09-09 14:40 | CM ---
Chart reviewed. Patient is in the OR today. Patient is independent of ADLS, lives with her and 13 yo daughter in a [address], 1 [address]. Plan is for the patient to return home with CT Transitional RN. CM to follow
[2024-09-09 14:50] LABS: B.E. - POC 4.3 mmol/L; Glucose - POC 87 mg/dl (70-99); HCO3 - POC 29 mmol/L (21-28); Hematocrit - POC 29 % PCV (37-47); Hemodilution- POC Yes; Hemoglobin Calculated - POC 9.9; Ionized Calcium - POC 0.99 mmol/L (1.15-1.33); Lactate - POC < 0.30 mmol/L (0.36-0.75); PCO2 - POC 44 mmHg (35-48); PO2 - POC 491 mmHg (83-108); POC Comment CPB; Potassium - POC 3.6 mmol/L (3.5-5.1); Sodium - POC 143 mmol/L (136-145); Specimen Type - POC Arterial; pH - POC 7.43 (7.35-7.45)
[2024-09-09 14:52] LABS: ACT+ - POC > 1003 Seconds (82-134)
[2024-09-09 14:52] LABS: ACT+ - POC > 1003 Seconds (82-134)
[2024-09-09 14:52] LABS: ACT+ - POC > 1003 Seconds (82-134)
[2024-09-09 14:52] LABS: ACT+ - POC > 1003 Seconds (82-134)
[2024-09-09 15:01] LABS: Glucose - Point of Care 105 mg/dl (70-99)
[2024-09-09] MEDS: ANCEF 10 IV ×2 (15:09)
[2024-09-09 15:11] LABS: B.E. -2.5 mmol/L; HCO3 22.5 mmol/L (21-28); Ionized Calcium 1.14 mMOL/L (1.15-1.33); O2 Saturation % 98.3 % (94-98); PCO2 39 mmHg (32-35); PO2 133 mmHg (83-108); Potassium 4.1 mMOL/L (3.5-5.1); Sodium 138 mMOL/L (136-145); pH 7.37 (7.35-7.45)
[2024-09-09 15:14] LABS: Mixed Venous O2 Saturation 79.8 %
[2024-09-09] MEDS: TYLENOL PO ×2 (15:20→21:30)
[2024-09-09] MEDS: NSS 500 IV (15:20)
[2024-09-09 15:23] LABS: INR 1.58; PT 19.1 Sec (11.4-14.6)
[2024-09-09 15:24] LABS: APTT 29.9 Sec (23.4-35.0)
[2024-09-09 15:27] LABS: Blood Urea Nitrogen 9 mg/dl (7-17); Estimated Creatinine Clearance 105 ml/min; Glucose 107 mg/dl (70-99); Magnesium 2.5 mg/dl (1.6-2.3)
--- NOTE | 2024-09-09 15:30 | PTCARENOTE ---
pt received from [facility] @~1440, sedated on Precedex gtt, RASS -5. core temp 96.3F, bear hugger applied as ordered. SR on the monitor, HR 70-80s. V wire in place, VVI 30/5. SBP goal 90-130, Cardene gtt titrated as ordered. PAP 20-30s/10s, CVP~6-8. CI
>2. palpable pulses, no edema. pt mechanically ventilated, ETT #8.0, 22cm@lip. SIMV 12, TV 600, PEEP 5, FIO2 40%. POX 99%. oral hygiene performed. lungs clear anteriorly. CTx1, no air leak or crepitus noted. pt abdomen s/n, hypoactive BS. Graves in
place, clear yellow urine, Graves care performed. sternal incision TYRONE, approximated, surgical bra in place. CT dressing c/d/i. R groin c/d/i. RIJ cordis/swan maintained. L radial Ines flushed, zeroed, and calibrated. PIV. insulin gtt running per
protocol. lab work drawn, EKG performed, CXR completed. see worklist for VS, I&O, and assessment.
[2024-09-09 15:41] LABS: Hemoglobin 11.1 g/dL (12.0-16.0); Platelet Count 162 10^3/uL (130-400)
[2024-09-09] MEDS: PACERONE PO (15:42)
[2024-09-09] MEDS: NEURONTIN PO (15:42)
[2024-09-09] MEDS: CALCIUM GLUCONATE 100 IV (15:45)
[2024-09-09 15:57] LABS: Glucose - Point of Care 131 mg/dl (70-99)
--- NOTE | 2024-09-09 16:08 | W.PN.CARDCBS ---
Addendum entered and electronically signed by Ced Sanders MD 09/09/24 16:42:
I saw and examined the patient.
The Recruitment Coordinator's note was reviewed and I agree with the note.
Comment: Briefly, 44-year-old woman past medical history of bicuspid aortic valve with severe aortic stenosis who underwent aortic valve replacement earlier today with On-X mechanical prosthesis
At time my evaluation she was intubated and sedated in the CVICU
Not requiring pressor or inotrope support
Filling pressures at goal based on invasive hemodynamics
Warm and well-perfused on exam
Maintaining sinus rhythm on telemetry
Agree with aspirin/metoprolol/amiodarone
Warfarin when safe from CT surgery standpoint
We will continue to follow with you
Original Note:
Today's Communication / Plan
-
Monitor rhythm and QT on telemetry
Plan for weaning of sedation and anticipated extubation this evening
Wean Cardene drip as vitals allow
Start rectal aspirin this evening with likely transition to Coumadin and heparin in a.m.
Usual postop care
Impression / Plan
-
PCP: Razia Leal
It Quality Assurance Analyst: Humaira Trejo
Impression:
Severe symptomatic bicuspid aortic stenosis
s/p aortic valve replacement with #21 mm On-X mechanical aortic valve prosthesis via mini sternotomy 09/09/2024, Dr. Cordova
Postop left bundle branch block
Mild aortic ectasia, ascending aorta
Moderate LVH with mild LVOT gradient
Hypothyroidism
Polycystic ovarian syndrome
Hypertension
Echocardiogram 06/30/2024: left ventricular ejection fraction 55 to 60%. Mild septal hypertrophy (1.3 cm).� Normal right ventricle. Trace MR. Bicuspid aortic valve with severe aortic valve stenosis peak/mean gradient 87/55 mmHg and aortic valve area
0.63 cmsq with trace AI.� Trace TR.
Left heart catheterization 06/23/2024 with nonobstructive coronary disease.
Plan:
- Elective admission 09/09/2024 for severe symptomatic aortic stenosis
- s/p aortic valve replacement with #21 mm On-X mechanical aortic valve prosthesis via mini sternotomy 09/09/2024, Dr. Cordova
- Seen immediately postop, intubated and sedated. Plan to wean sedation with anticipated extubation later this evening
- Hemodynamically stable however on Cardene at 2.5 mg/hr. Wean as tolerated
- Personally reviewed postop EKG demonstrating normal sinus rhythm with incomplete left bundle branch block, QTc 562 ms. Left bundle branch block is new postoperatively. Continue to monitor on telemetry.
- Postop chest x-ray with some right mid upper lobe subsegmental atelectasis without pneumothorax. ET tube in tip of proximal right mainstem bronchus. Tube repositioned by respiratory. Repeat chest x-ray pending.
- Postop hemoglobin 11.1, preop 13.4. Continue to monitor and trend
- Given mechanical valve plan to start aspirin this evening then transition to Coumadin and low-dose heparin in a.m. of 09/10/2024
- Usual postop care.
Progress Note - It Quality Assurance Analyst
Subjective
Date of Service: September 09, 2024
Patient seen and examined immediately postoperatively. Patient remains intubated and sedated on Cardene drip.
Objective
Labs:
09/09/24 15:00
Labs
Hgb 11.1 g/dL (12.0-16.0) L 09/09/24 15:00
Hct 33.0 % (37.0-47.0) L 09/09/24 15:00
Plt Count 162 10^3/uL (130-400) D 09/09/24 15:00
PT 19.1 Sec (11.4-14.6) H 09/09/24 15:00
INR 1.58 09/09/24 15:00
APTT 29.9 Sec (23.4-35.0) 09/09/24 15:00
Sodium 137 mmol/L (135-145) 09/05/24 12:34
Potassium 4.3 mmol/L (3.5-5.1) 09/05/24 12:34
BUN 9 mg/dl (7-17) 09/09/24 15:00
Creatinine 0.7 mg/dL (0.6-1.0) 09/09/24 15:00
Glucose 107 mg/dl (70-99) H 09/09/24 15:00
Vital Signs and I&O:
Vital Signs
Temp Pulse Resp BP Pulse Ox
96.9 F L 76 10 103/65 97
09/09/24 16:00 09/09/24 16:00 09/09/24 16:00 09/09/24 15:41 09/09/24 16:00
Vital Signs
Temp Pulse Resp BP Pulse Ox
96.9 F L 76 10 103/65 97
09/09/24 16:00 09/09/24 16:00 09/09/24 16:00 09/09/24 15:41 09/09/24 16:00
Intake & Output
09/07/24 09/08/24 09/09/24 09/10/24
06:59 06:59 06:59 06:59
Intake Total 237.6 / 237.6
Output Total 555 / 555
Balance -317.4 / -317.4
Physical Exam
Physical Exam
GEN: Intubated and sedated; Ivan hugger and tach
HEENT: supple, anicteric, mmm
LUNGS: CTA anteriorly, no wheezes/rales
CV: Reg, S1/S2, no murmur, rub or gallop
ABD: soft, BS+, NT/ND
EXT: No edema, clubbing or cyanosis
NEURO: Unable to assess as patient currently intubated and sedated
SKIN: No rash,, warm, dry, pink
--- NOTE | 2024-09-09 16:15 | PTCARENOTE ---
2g Calcium rider given per orders. per SERVICE ENGINEER, ETT pulled back 3cm to 19cm@lip by RT Meli.
[2024-09-09] MEDS: LR 250 ML IV (16:30)
[2024-09-09 16:51] LABS: Glucose - Point of Care 101 mg/dl (70-99)
--- NOTE | 2024-09-09 17:09 | PTCARENOTE ---
Addendum entered by Cyn Hirsch RN 09/09/24 17:16:
@1715- pt placed on CPAP trial, 08/18 40%. POX 97%.
Original Note:
250ml LR bolus given per SILK EXAMINER. pt nodding appropriately, WYLIE, follows commands.
[2024-09-09 17:50] LABS: B.E. - POC -4.1 mmol/L; Blood Urea Nitrogen - POC 8 mg/dl (3-120); Chloride - POC 110 mmol/L (96-111); Creatinine - POC 0.65 mg/dl (0.3-1.0); Glucose - POC 118 mg/dl (70-99); HCO3 - POC 21 mmol/L (21-28); Hematocrit - POC 36 % PCV (37-47); Hemodilution- POC Yes; Hemoglobin Calculated - POC 12.3; Ionized Calcium - POC 1.22 mmol/L (1.15-1.33); Lactate - POC 4.19 mmol/L (0.36-0.75); O2 Saturation %Calculated-POC 97.6 % (94-98); PCO2 - POC 38 mmHg (35-48); PO2 - POC 101 mmHg (83-108); Potassium - POC 3.8 mmol/L (3.5-5.1); Sodium - POC 144 mmol/L (136-145); Specimen Type - POC Arterial; pH - POC 7.35 (7.35-7.45)
[2024-09-09 17:52] LABS: Glucose - Point of Care 120 mg/dl (70-99)
[2024-09-09 17:59] LABS: Hematocrit 35.1 % (37.0-47.0); Hemoglobin 12.1 g/dL (12.0-16.0); Platelet Count 185 10^3/uL (130-400)
[2024-09-09] MEDS: LR 1000 IV (18:07)
[2024-09-09] MEDS: ALBUMIN 5% 250 IV (18:09)
[2024-09-09 18:12] LABS: Lactic Acid 4.3 mmol/L (0.7-2.0)
--- NOTE | 2024-09-09 18:22 | PTCARENOTE ---
EPOC done at bedside by SOLIDWORKS DRAFTER, per SOLIDWORKS DRAFTER okay to extubate. lactic acid drawn as ordered. pt extubated @1805 to 6LNC, oriented x4, WYLIE. IS 600ml. SOLIDWORKS DRAFTER aware of lactic acid result, LR IVF running as ordered. Albumin 5% given as ordered. pt washed w/ CHG
wipes, gown and linens changed. face washed. called and updated.
[2024-09-09] MEDS: OFIRMEV 100 IV (18:37)
[2024-09-09 19:17] LABS: Glucose - Point of Care 117 mg/dl (70-99)
[2024-09-09] MEDS: DILAUDID 0.25 MG IV (19:41)
--- NOTE | 2024-09-09 19:50 | PTCARENOTE ---
Patient received from RN @1900. Patient lying in bed comfortably w/ call allison in reach. AOx3. NSR BP 123/67 HR 85. Heart sounds audible w/ click. Radial and pedal pulses present. No edema noted. V-wires set to 30/5/2. Lungs clear but
diminished throughout. POX 99% 6L NC. 1x mediastinal chest tube set to -20 suction draining red fluid. No crepitus, tidaling, or air leaks noted. Bowel sounds hypoactive. Graves draining clear yellow urine. Sternal incision well approximated
TYRONE. CT dressing dry and intact. Right groin dressing dry and intact. RIJ cordis w/ swan @ 38 PAP 34/17 CVP 11 CI 2.83. Left radial A-line. Right hand PIV patent and intact. All lines leveled and zeroed. LR infusing per order. Insulin
infusing per protocol.
[2024-09-09] MEDS: LOW STRENGTH ASPIRIN 81 MG PO (20:35)
[2024-09-09] MEDS: SENOKOT-S PO (20:37)
[2024-09-09] MEDS: ROXICODONE 5 MG PO (21:06)
[2024-09-09] MEDS: ANCEF 5 IV (21:07)
[2024-09-09 21:24] LABS: Glucose - Point of Care 113 mg/dl (70-99)
[2024-09-09 21:44] LABS: Lactic Acid 3.8 mmol/L (0.7-2.0)
[2024-09-09] MEDS: NEURONTIN 100 MG PO (22:14)
[2024-09-09] MEDS: PACERONE 200 MG PO (22:15)
[2024-09-09] MEDS: VITAMIN D3 (cholecalciferol) 25 MCG PO (23:01)
[2024-09-09] MEDS: FEOSOL 325 MG PO (23:01)
[2024-09-09 23:13] LABS: Glucose - Point of Care 126 mg/dl (70-99)
[2024-09-09] MEDS: DILAUDID 0.5 MG IV (23:33)
[2024-09-10] VITALS (46 sets, daily range): BP systolic 78–114; BP diastolic 42–74; PULSE 80; O2SAT 95–98; BMI 37.0
--- NOTE | 2024-09-10 00:05 | PTCARENOTE ---
Patient reassessed. BP 122/64 HR 90 POX 100% 6L NC. Patient complaining of pain. See MAR for details
[2024-09-10 01:10] LABS: Glucose - Point of Care 100 mg/dl (70-99)
[2024-09-10 03:00] LABS: Mixed Venous O2 Saturation 74.1 %
[2024-09-10 03:06] LABS: Hematocrit 31.8 % (37.0-47.0); Hemoglobin 10.9 g/dL (12.0-16.0); Mean Corp Hgb Conc. 34.3 g/dL (33.0-37.0); Mean Corpuscular Hgb 29.7 pg (27.0-31.0); Mean Corpuscular Volume 86.6 fL (81.0-99.0); Mean Platelet Volume 9.1 fL (7.4-10.4); Platelet Count 177 10^3/uL (130-400); Red Blood Cell Count 3.67 10^6/uL (4.20-5.40); Red Cell Dist. Width 12.3 % (11.5-14.5); White Blood Cell Count 11.9 10^3/uL (4.8-10.8)
[2024-09-10 03:09] LABS: Glucose - Point of Care 105 mg/dl (70-99)
[2024-09-10 03:11] LABS: INR 1.22; PT 15.7 Sec (11.4-14.6)
[2024-09-10 03:13] LABS: Blood Urea Nitrogen 12 mg/dl (7-17); Calcium 8.2 mg/dl (8.4-10.2); Carbon Dioxide 21 mmol/L (22-30); Chloride 112 mmol/L (98-107); Estimated Creatinine Clearance 105 ml/min; Glucose 128 mg/dl (70-99); Magnesium 1.9 mg/dl (1.6-2.3); Potassium 3.8 mmol/L (3.5-5.1); Sodium 140 mmol/L (135-145); eGFR > 60.00
[2024-09-10 03:31] LABS: Lactic Acid 1.8 mmol/L (0.7-2.0)
--- NOTE | 2024-09-10 03:42 | W.PN.CT ---
Today's Communication / Plan
-
Plan:
-No major issues overnight. Hemodynamically and neurologically intact
-Successfully extubated @ 1802 on 09/09/24
-Weaned off Levophed gt, on LR @ 100 ml/hr and insulin gtt per protocol
-Rhythm is NSR @ 90 bpm
-Last CI 2.84, MVO2 74.1%, u/o since OR 1630 mL. CXR this AM looks clear, f/u official report
-Monitor chest tube output: 1med 140/190
-Cont. current meds (ASA, Synthroid, Amiodarone, Lopressor)
-Will replete K, 3.8
-Will start Heparin to Coumadin bridge for On-X mechanical valve, monitor PTT and INR
-Will d/c insulin gtt later today per protocol and transition to tele phase
-D/C'd sidneyan and a-line @ 0415
-Will D/C patrick @ 0600
-Maintain temporary PW (will cut before d/c home)
-Maintain cordis
-Encourage use of IS
-Wean off of O2
-OOB into chair/Ambulate
Assessment / Plan
-
Assessment:
-S/P Upper mini sternotomy to the third intercostal space with central aortic and peripheral venous cannulation/AVR (21 mm On-X mechanical aortic valve) by Dr. Cordova, 09/09/24, pod#1
-Bicuspid aortic valve, type 0 morphology
-Severe aortic valve stenosis, symptomatic
-Mild aortic ectasia, ascending aorta
-Moderate left ventricular hypertrophy with mild LVOT gradient
-LVEF 60%, per intraop CALI
-Hypothyroidism
-PCOS
-Nonobstructive CAD
-Hypertension
-Class 2 obesity (BMI 36.2)
-Acute postop blood loss/Anemia (stable without transfusion)
-Acute postop atelectasis
-Acute postop lactic acidosis
-Acute postop hypovolemia with subsequent hypervolemia
Discussed patient care with: Cardiology, Nursing, Respiratory Therapy, Pharmacy and Care Team
Subjective
Procedure
S/P Upper mini sternotomy to the third intercostal space with central aortic and peripheral venous cannulation/AVR (21 mm On-X mechanical aortic valve) by Dr. Cordova, 09/09/24
-
Date of Service: September 10, 2024
Pt c/o incisional pain, otherwise feels well
Objective Data
-
Lab Results
09/10/24 02:48
09/10/24 02:48
PT 15.7 Sec (11.4-14.6) H 09/10/24 02:48
INR 1.22 09/10/24 02:48
APTT 29.9 Sec (23.4-35.0) 09/09/24 15:00
Vital Signs
Vital Signs
Temp Pulse Resp BP Pulse Ox
99.3 F 88 27 104/66 99
09/10/24 03:00 09/10/24 03:00 09/10/24 03:00 09/10/24 03:00 09/10/24 03:00
CT Intake/Output/Weight
09/09/24 09/09/24 09/10/24
06:59 18:59 06:59
Intake Total 683.1 / 1697.4 1014.3 / 1697.4
Output Total 1175 / 1735 560 / 1735
Balance -491.9 / -37.6 454.3 / -37.6
SaO2: 99 (2L)
Physical Exam
-
General: Awake, Oriented and AOx3
Cardiovascular: Regular rate & rhythm, No Murmurs and No Gallop
Respiratory: Decreased Breath Sounds (at bases, otherwise clear)
Sternum: Stable
Incision: Clean, Dry, Intact and Dressing Intact
Extremities: Other (+trace edema)
Data Reviewed
-
Lab Results: Results Reviewed
Medications: Active Meds Reviewed
Chest X-Ray: Report Reviewed and Image Reviewed
ECG: Report Reviewed and Image Reviewed
--- NOTE | 2024-09-10 03:52 | PTCARENOTE ---
Patient reassessed. NSR w/ prolonged QT. VSS. Labs resulted CT PA Ed notified. EKG obtained. CHG cloth bath performed. CT dressing changed.
[2024-09-10] MEDS: KCL 40 MEQ PO (03:57)
--- NOTE | 2024-09-10 04:10 | PTCARENOTE ---
Александр and A-line removed per CT PA Ed.
[2024-09-10] MEDS: ROXICODONE 2.5 MG PO ×2 (04:33→17:05)
[2024-09-10] MEDS: CALCIUM GLUCONATE 130 MG IV (04:33)
[2024-09-10 05:01] LABS: Glucose - Point of Care 121 mg/dl (70-99)
--- NOTE | 2024-09-10 06:00 | PTCARENOTE ---
Graves removed Per CT PA Ed.
[2024-09-10] MEDS: TYLENOL 1000 MG PO ×3 (06:01→21:25)
[2024-09-10] MEDS: ANCEF 5 IV ×2 (06:01→13:00)
[2024-09-10] MEDS: SYNTHROID 150 MCG PO (06:02)
[2024-09-10 07:14] LABS: Glucose - Point of Care 101 mg/dl (70-99)
--- NOTE | 2024-09-10 07:30 | PTCARENOTE ---
Received pt from mine shifter RN; pt AAOx3 and resting comfortably in bed; NSR on monitor and VSS; RIJ Cordis, and PIV patent; Insulin infusing see flow sheet for details; Epicardial V wires set to back up VVI and no pacing noted on monitor;
Lungs diminished; IS to 750; CT x1 to -20 wall suction no air leak and no crepitus noted; hypoactive bowel sounds; Graves catheter removed by mine shifter RN, pt DTV by 1200; palpable pulses throughout; no edema noted; all surgical sites C/D/I; see
nursing documentation for further details.
[2024-09-10] MEDS: BACTROBAN 2% OINTMENT 1 APPLIC NASAL ×2 (07:55→19:49)
--- NOTE | 2024-09-10 07:55 | PTCARENOTE ---
Epicardial V wires pulled by CT GOLD NIB GRINDER.
[2024-09-10] MEDS: NEURONTIN 100 MG PO ×3 (07:56→21:25)
[2024-09-10] MEDS: LOW STRENGTH ASPIRIN 81 MG PO (07:56)
[2024-09-10] MEDS: MAGNESIUM OXIDE 500 MG PO ×2 (07:56→19:49)
[2024-09-10] MEDS: PACERONE 200 MG PO ×3 (07:56→21:25)
[2024-09-10] MEDS: LIDOCAINE 4% PATCH 1 PATCH TOPICAL (07:56)
[2024-09-10] MEDS: PROTONIX 40 MG PO (07:56)
[2024-09-10] MEDS: SENOKOT-S 1 TABLET PO ×2 (07:56→19:49)
--- NOTE | 2024-09-10 08:27 | W.PN.INTV ---
Today's Communication / Plan
Recommendations
Up OOB as tolerated
Encourage incentive spirometer use
Pain control
Continue midodrine and maintain MAP >65-70
Goal BG 110�140 while weaning off insulin drip per protocol
Marine Technician services will continue to follow along until patient is weaned off insulin drip. Once transferred to CVICU�telemetry status then we will sign off at that time.
Assessment
-
Assessment: 44-year-old female non-smoker with a past medical history of severe aortic valve stenosis, hypothyroidism, CAD, hypertension, and mild aortic ectasia who presents for elective aortic valve replacement. Patient known to the
cardiothoracic surgery service with last visit on 07/18/[address] Cordova. Patient has known severe aortic valve stenosis with mild aortic root dilation, seen on recent echo from 06/30/2024. Peak/mean gradients across the AVR 87/55 mmHg,
respectively with an XANDER of 0.63 cm�. Since the echocardiogram in February 2024 her aortic stenosis had worsened going from a mean gradient of 39 up to 55 mmHg with the XANDER decreasing from 0.8 to 0.63 cm�. Patient discussed surgical intervention
with Dr. Cordova and patient has agreed to a cardiothoracic procedure, and on 09/09/2024 she underwent a mini-sternotomy with surgical aortic valve replacement with a 21 mm mechanical aortic valve. There were no immediate complications and she was
transferred to the CVICU postoperatively with Marine Technician services consulted for additional management/recommendations
Chronic conditions FRUIT THINNER: Aortic valve stenosis, bicuspid aortic valve, hypothyroidism, PCOS, bicuspid aortic valve, CAD, hypertension, history of constipation, mild aortic ectasia
Impression:
#Bicuspid aortic valve with severe aortic valve stenosis s/p mini-sternotomy with surgical aortic valve replacement with 21 mm mechanical aortic valve (POD #1)
#Lactic acidosis - resolved as of 09/10
#Hypocalcemia
#Hypothyroidism
#PCOS
#Nonobstructive CAD
#Hypertension
Plan:
Pt extubated on 09/09 and is currently saturating 98% on room air and breathing comfortably
Maintain SpO2 >90-94%
prn nebulized bronchodilators - not currently bronchospastic
Encourage incentive spirometer q1hr while awake
Pressors/antihypertensive/inotropes/diuretics will be provided as needed
Midodrine added today due to hypotension - hopefully can wean this off in the next few days
Maintain MAP>65
Replete electrolytes with K>4, Mg>2
Monitor chest tube output (mediastinal chest tube x 1)
Monitor hemoglobin
Monitor platelet count and coags
Transfuse blood products as needed to maintain Hb>7g/dL, plt>50k (given post-operative status)
CT surgery managing chest tubes
Monitor blood sugar to maintain euglycemia with goal BG 110-140
Insulin drip per protocol
Aspiration precautions
DVT prophylaxis
Early nutrition
Early mobilization
Marine Technician services will continue to follow along until patient is weaned off insulin drip. Once transferred to CVICU�telemetry status then we will sign off at that time.
Critical care statement: A total of 37 minutes of critical care time was provided for this patient today. This includes management of ventilator, spontaneous breathing trial, arterial blood gases, pressors, of unstable vital signs, evaluation of the
patient at bedside, reviewing the patient's pertinent medical records including radiographs, microbiology, laboratory evaluations, and discussion with primary team and critical care nursing.
Subjective Dataa
Subjective Data
Date of Service:
Date of Service: September 10, 2024
Chief Complaint: Marine Technician Follow Up
Subjective:
Patient seen and evaluated today at bedside. Insulin currently at 0.8 units/h. Hypotensive this morning with SBP in the 80s, received 500 cc bolus and started on midodrine. Mediastinal chest tube x [address] Current BP via NIBP: 96/56, and
heart rate 76. She is resting in bed no acute distress. Denies chest pain, CHERRY, nausea, fevers or chills.
Review of Systems
General: Other (Negative unless mentioned above)
Objective Data
Data Reviewed
Vital Signs / I&O / Oxygen:
Vital Signs
Temp Pulse Resp BP Pulse Ox
98.8 F 80 20 101/61 94
09/10/24 07:00 09/10/24 09:05 09/10/24 08:00 09/10/24 09:00 09/10/24 09:05
Intake and Output
09/09/24 09/10/24 09/11/24
06:59 06:59 06:59
Intake Total 1744.0 / 1756.3 34.9 / 34.9
Output Total 188 / 0 60 / 60
Balance -141.0 / -153.7 -25.1 / -25.1
SaO2 [SIMV] 99
SaO2 94
Nasal Cannula flow liters per 2
minute
Physical Exam
General: Respiratory Distress (negative), Comfortable, Chills (negative) and Sweats (negative)
HEENT: Normocephalic and Anicteric
Cardiovascular: S1-S2 and Peripheral Edema (negative)
Respiratory: Wheeze (negative), Crackles (negative), Rhonchi (negative) and Non-Labored Respirations
GI: Soft, Non Distended, Non Tender and Normal Bowel Sounds
Neurology: Awake, Alert and Tremors (negative)
Skin: Warm, Dry, Jaundice (negative) and Rash (negative)
Labs/Micro/Reports
Lab Data
09/10/24 02:48
09/10/24 02:48
Laboratory Results
09/09/24 09/09/24 09/10/24
15:00 17:45 02:48
PT 19.1 H 15.7 H
INR 1.58 1.22
APTT 29.9
pH 7.37 Cancelled
pCO2 39 H Cancelled
pO2 133 H Cancelled
HCO3 22.5 Cancelled
O2 Delivery Level Cancelled
[2024-09-10 09:18] LABS: Glucose - Point of Care 121 mg/dl (70-99)
[2024-09-10] MEDS: TORADOL 15 MG IV ×2 (09:18→17:38)
--- NOTE | 2024-09-10 10:43 | W.PN.ANS.POP ---
Anesthesia Post Operative
- Anesthesia Post Op Note
Vital Signs Stable-See Nursing Note: Yes
Airway Patent: Yes
Adequate Pain Control: Yes
Change in Mental Status: No
Current Postoperative Nausea & Vomiting: No
Anesthesia Complications: No
General Anesthetic Recall: No
Unplanned Admission: No
Post Op Hydration Adequate: Yes
[2024-09-10] MEDS: ProAmatine 5 MG PO ×3 (11:08→17:05)
[2024-09-10 11:15] LABS: Glucose - Point of Care 124 mg/dl (70-99)
--- NOTE | 2024-09-10 11:37 | CM ---
Chart reviewed. Patient is OOB sitting in the chair, at bedside. Patient is independent of ADLS, lives with her in a 2 STH, 1 LEONOR, 0 DME. Plan is for the patient to return home with CT Transitional RN. CM to follow
--- NOTE | 2024-09-10 12:30 | PTCARENOTE ---
Assessment unchanged; NSR on monitor and VSS: pt resting comfortably in chair awaiting lunch.
[2024-09-10 13:16] LABS: Glucose - Point of Care 97 mg/dl (70-99)
[2024-09-10 15:01] LABS: Glucose - Point of Care 146 mg/dl (70-99)
--- NOTE | 2024-09-10 15:59 | W.PN.CARDCBS ---
Addendum entered and electronically signed by Moise Martin MD 09/10/24 16:20:
Patient seen and examined
Agree with KARINA Díaz's note and assessment
Agree with KARINA Díaz's plan
One-to-one conduction on telemetry
Exam:
[place] S2 and regular rate and rhythm without murmur
Oriented x 3
Nonfocal neurologically
JVP 6
Sternum intact
abd soft nt nd
Impression:
Severe symptomatic bicuspid aortic stenosis
s/p aortic valve replacement with #21 mm On-X mechanical aortic valve prosthesis via mini sternotomy 09/09/2024, Dr. CordovaPostop left bundle branch block
Mild aortic ectasia, ascending aorta
Moderate LVH with mild LVOT gradient
Hypothyroidism
Polycystic ovarian syndrome
Hypertension
Echocardiogram 06/30/2024: left ventricular ejection fraction 55 to 60%. Mild septal hypertrophy (1.3 cm).� Normal right ventricle. Trace MR. Bicuspid aortic valve with severe aortic valve stenosis peak/mean gradient 87/55 mmHg and aortic valve area
0.63 cmsq with trace AI.� Trace TR.
Left heart catheterization 06/23/2024 with nonobstructive coronary disease.
Plan:
- bicuspid s/p aortic valve replacement with #21 mm On-X mechanical aortic valve prosthesis via mini sternotomy 09/09/2024, Dr. Cordova
- off pressors however with some hypotension this AM. improved s/p dose of midodrine. follow BP trends. holding diuresis today. prior to admission was on losartan/HCTZ.
- hgb 10.9. for 2.5mg coumadin tonight. will plan to start IV heparin in AM per surgery. goal INR 2-3 in setting of mechanical AVR.
- EKG 09/10 with improvement compared to 09/09, NSR.
- continue post op care, OOB/IS as able
- d/w nursing
Original Note:
Today's Communication / Plan
-
continue post op care
coumadin 2.5mg tonight. IV heparin to start tomorrow
Impression / Plan
-
PCP: Razia Leal
Concrete Batch Plant Operator: Humaira Trejo
Impression:
Severe symptomatic bicuspid aortic stenosis
s/p aortic valve replacement with #21 mm On-X mechanical aortic valve prosthesis via mini sternotomy 09/09/2024, Dr. Cordova
Postop left bundle branch block
Mild aortic ectasia, ascending aorta
Moderate LVH with mild LVOT gradient
Hypothyroidism
Polycystic ovarian syndrome
Hypertension
Echocardiogram 06/30/2024: left ventricular ejection fraction 55 to 60%. Mild septal hypertrophy (1.3 cm).� Normal right ventricle. Trace MR. Bicuspid aortic valve with severe aortic valve stenosis peak/mean gradient 87/55 mmHg and aortic valve area
0.63 cmsq with trace AI.� Trace TR.
Left heart catheterization 06/23/2024 with nonobstructive coronary disease.
Plan:
- bicuspid s/p aortic valve replacement with #21 mm On-X mechanical aortic valve prosthesis via mini sternotomy 09/09/2024, Dr. Cordova
- off pressors however with some hypotension this AM. improved s/p dose of midodrine. follow BP trends. holding diuresis today. prior to admission was on losartan/HCTZ.
- hgb 10.9. for 2.5mg coumadin tonight. will plan to start IV heparin in AM per surgery. goal INR 2-3 in setting of mechanical AVR.
- EKG 09/10 with improvement compared to 09/09, NSR.
- continue post op care, OOB/IS as able
- d/w nursing
Progress Note - Concrete Batch Plant Operator
Subjective
Date of Service: September 10, 2024
No complaints. Sitting in chair
Objective
Labs:
09/10/24 02:48
09/10/24 02:48
Labs
Hgb 10.9 g/dL (12.0-16.0) L 09/10/24 02:48
Hct 31.8 % (37.0-47.0) L 09/10/24 02:48
Plt Count 177 10^3/uL (130-400) 09/10/24 02:48
PT 15.7 Sec (11.4-14.6) H 09/10/24 02:48
INR 1.22 09/10/24 02:48
APTT Cancelled 09/10/24 07:37
Sodium 140 mmol/L (135-145) 09/10/24 02:48
Potassium 3.8 mmol/L (3.5-5.1) 09/10/24 02:48
BUN 12 mg/dl (7-17) 09/10/24 02:48
Creatinine 0.7 mg/dL (0.6-1.0) 09/10/24 02:48
Glucose 128 mg/dl (70-99) H 09/10/24 02:48
Vital Signs and I&O:
Vital Signs
Temp Pulse Resp BP Pulse Ox
98.2 F 78 20 94/57 98
09/10/24 12:00 09/10/24 12:30 09/10/24 12:00 09/10/24 12:00 09/10/24 12:30
Vital Signs
Temp Pulse Resp BP Pulse Ox
98.2 F 78 20 94/57 98
09/10/24 12:00 09/10/24 12:30 09/10/24 12:00 09/10/24 12:00 09/10/24 12:30
Intake & Output
09/08/24 09/09/24 09/10/24 09/11/24
07:59 07:59 07:59 07:59
Intake Total 1767.6 / 1767.6 48.5 / 48.5
Output Total 1939 / 1939 35 / 35
Balance -172.4 / -172.4 13.5 / 13.5
Physical Exam
Physical Exam
GEN: No distress, awake, alert, oriented x3. Sitting in chair
HEENT: supple, anicteric, mmm, EOMI
LUNGS: CTA bilaterally, no wheezes/rales
CV: Reg, S1/S2, no murmur
ABD: soft, BS+, NT/ND
EXT: No cyanosis, clubbing. trace edema of B/L LE
NEURO: Gross non-focal
SKIN: Warm, pink, dry. No rash
--- NOTE | 2024-09-10 16:01 | DOWNTIME ---
There was a [employer] Client Senior Commissions Analyst Downtime on 09/10/2024 from 1230 to 09/10/2024 at 1550. Downtime documentation of patient's care, including medication administrations, has been reconciled in the electronic record per guidelines. Refer to the
patient's paper chart under the miscellaneous tab to see printed paper medication records and downtime forms.
[2024-09-10] MEDS: NSS IV (16:15)
[2024-09-10] MEDS: FERRLECIT 110 MG IV (16:29)
[2024-09-10] MEDS: ALBUMIN 5% 250 IV (17:01)
[2024-09-10] MEDS: COUMADIN 2.5 MG PO (17:01)
--- NOTE | 2024-09-10 17:06 | PTCARENOTE ---
Repeat bladder scan preformed for 155 ml. Denies urge to void. CT BOBBIN DISKER notified, order for albumin obtained and administered. Medicated for pain. VSS. Assessment otherwise unchanged from prior.
--- NOTE | 2024-09-10 20:30 | PTCARENOTE ---
Assumed care of pt from dayshift RN. Walking rounds completed. Pt is AAOx3. SR on the tele monitor. HR 70s. BP stable. Palpable pulses throughout. No edema noted. Pt is 97% on RA. Mediastinal CT to -20 suction, no airleak noted at this time, and
output WNL. Deep breathing and IS encouraged. Occasional cough. Abdomen round. +BS. Pt DTV post patrick removal this morning. Pt assisted out of the chair and to the commode to attempt to void. Pt unable to void at this time. Pt then assisted into bed
and bladder scanned for 272 ml urine. Pt denies bladder pain or discomfort. All surgical sites stable. Surgical bra in place. See worklist for full nursing assessment and interventions. Call allison within reach.
[2024-09-10] MEDS: VITAMIN D3 (cholecalciferol) 25 MCG PO (21:25)
[2024-09-10] MEDS: FEOSOL 325 MG PO (21:25)
[2024-09-11] VITALS (21 sets, daily range): BP systolic 74–115; BP diastolic 49–78; PULSE 80; O2SAT 94–96; BMI 38.4
--- NOTE | 2024-09-11 01:00 | PTCARENOTE ---
Pt reassessed. Remains SR on the tele monitor. HR 70s. BP while laying 100s/60s. Pt POX is 96% on RA. CT assessment unchanged. All surgical sites stable. Pt bladder scanned for 441 ml urine. No urge to void. Pt assisted OOB to the commode to attempt
to void. Did not walk pt into bathroom d/t low BPs. BP while sitting on edge of bed or standing 70-80s/50-60. Pt unable to void. PA aware - pt then straight cathed for 500ml yellow urine. Pt resting in bed at this time. Call allison within reach.
--- NOTE | 2024-09-11 03:30 | PTCARENOTE ---
Assessment unchanged. Pt SR on the tele monitor. HR 70s. BP stable. Pt is 96% on RA. CT assessment unchanged. No urge to void. Labs drawn and sent. Pt repositioned in bed. All surgical sites stable. Call allison within reach.
[2024-09-11 03:35] LABS: Hemoglobin 9.2 g/dL (12.0-16.0); Mean Corp Hgb Conc. 34.1 g/dL (33.0-37.0); Mean Corpuscular Hgb 30.1 pg (27.0-31.0); Mean Corpuscular Volume 88.2 fL (81.0-99.0); Mean Platelet Volume 9.5 fL (7.4-10.4); Platelet Count 167 10^3/uL (130-400); Red Blood Cell Count 3.06 10^6/uL (4.20-5.40); Red Cell Dist. Width 12.9 % (11.5-14.5); White Blood Cell Count 12.9 10^3/uL (4.8-10.8)
[2024-09-11 03:46] LABS: APTT 34.8 Sec (23.4-35.0); INR 1.28; PT 16.6 Sec (11.4-14.6)
[2024-09-11 03:57] LABS: Blood Urea Nitrogen 20 mg/dl (7-17); Calcium 8.4 mg/dl (8.4-10.2); Carbon Dioxide 21 mmol/L (22-30); Chloride 107 mmol/L (98-107); Estimated Creatinine Clearance 93 ml/min; Glucose 124 mg/dl (70-99); Potassium 4.1 mmol/L (3.5-5.1); Sodium 133 mmol/L (135-145); eGFR > 60.00
[2024-09-11] MEDS: SYNTHROID 150 MCG PO (05:23)
[2024-09-11] MEDS: TYLENOL 1000 MG PO ×3 (05:23→22:52)
--- NOTE | 2024-09-11 06:43 | W.PN.CT ---
Documented by User: Jyothi Bermeo PA-C 09/11/24 07:40
Today's Communication / Plan
-
-pod #2
-in nsr 70s overnight. Holding BB
-urinary retention overnight - straight cathed for 500 cc @ 1am
-low BP, asymptomatic- was started on Midodrine 5 tid
-wt is up - 209 lbs today (197 preop)
-got 2.5 mg Coumadin on 09/10. Inr today 1.28.
-iv Heparin is ordered to start this am for mechanical AVR, PTT goal 60-[address] Cordova
-current meds (ASA, Coumadin, Amio, iv Heparin, Protonix, Feosol, Midodrine)
-encourage IS, OOB
Assessment / Plan
-
Assessment:
-S/P Upper mini sternotomy to the third intercostal space with central aortic and peripheral venous cannulation/AVR (21 mm On-X mechanical aortic valve) by Dr. Cordova, 09/09/24, pod#2
-Bicuspid aortic valve, type 0 morphology
-Severe aortic valve stenosis, symptomatic
-Mild aortic ectasia, ascending aorta
-Moderate left ventricular hypertrophy with mild LVOT gradient
-LVEF 60%, per intraop CALI
-Hypothyroidism
-PCOS
-Nonobstructive CAD
-Hypertension
-Class 2 obesity (BMI 36.2)
-Acute postop blood loss/Anemia (stable without transfusion)
-Acute postop atelectasis
-Acute postop lactic acidosis - resolved
-Acute postop hypovolemia with subsequent hypervolemia
-Acute postop urinary retention - straight cathed for 500 cc on 09/11
-Acute postop hyponatremia
Discussed patient care with: Nursing and Care Team
Subjective
Procedure
S/P Upper mini sternotomy to the third intercostal space with central aortic and peripheral venous cannulation/AVR (21 mm On-X mechanical aortic valve) by Dr. Cordova, 09/09/24
-
Date of Service: September 11, 2024
Objective Data
-
Lab Results
09/11/24 03:21
09/11/24 03:21
PT 16.6 Sec (11.4-14.6) H 09/11/24 03:21
INR 1.28 09/11/24 03:21
APTT 34.8 Sec (23.4-35.0) 09/11/24 03:21
Vital Signs
Vital Signs
Temp Pulse Resp BP Pulse Ox
98 F 78 16 82/51 97
09/11/24 04:00 09/11/24 06:00 09/11/24 04:00 09/11/24 05:58 09/11/24 04:00
CT Intake/Output/Weight
09/10/24 09/10/24 09/11/24
06:59 18:59 06:59
Intake Total 1060.9 / 1756.3 482.1 / 582.1 100 / 582.1
Output Total 710 / 1910 90 / 685 595 / 685
Balance 350.9 / -153.7 392.1 / -102.9 -495 / -102.9
SaO2: 97
Physical Exam
-
General: Awake and AOx3
Cardiovascular: Regular rate & rhythm (sharp S2 click), No Murmurs and No Rub
Respiratory: Decreased Breath Sounds
Sternum: Stable
Incision: Clean, Dry and Intact
Extremities: No Edema
Abdomen: soft, nontender, nondistended, + bowel sounds
Data Reviewed
-
Lab Results: Results Reviewed
Medications: Active Meds Reviewed
Chest X-Ray: Report Reviewed and Image Reviewed
ECG: Report Reviewed and Image Reviewed

Documented by User: Anna Estrada PA-C 09/11/24 07:40
Today's Communication / Plan
-
D/c med chest tubes
Hold diuresis
Continue current level of care
--- NOTE | 2024-09-11 09:00 | PTCARENOTE ---
Assumed care of patient. Pt assessed while she was sitting in the chair. Pt alert and oriented x4. WYLIE with equal strength throughout. Ambulated with 1 assist to the bathroom. Pt voided 450mL hermann urine. Denies pain, shortness of breath, and
nausea. SR on tele with rates in the 70s-80s. BP 104/67. Bilateral radial and DP pulses palpable. Generalized +1 edema. +click. Denies dizziness/lightheadedness. POX 96% on RA. Lungs diminished in the bases. IS encouraged-750mL achieved. Occasional
nonproductive moist cough. Mediastinal chest tube to -20cm suction draining serosanguineous fluid. No air leaks, tidaling, crepitus. Abdomen soft, round, nontender. +BS. +gas. Sternal incision approximated with skin glue, PROGRAM ELIGIBILITY SPECIALIST. CT dressing CDI. Right
groin puncture site covered, dressing CDI. Right IJ cordis intact with NSS KVO. Right hand 20g PIV intact, heparin gtt started per orders. See MAR for medication administration. See worklist for complete nursing assessment. Plan of care reviewed and
patient in agreement.
[2024-09-11] MEDS: LIDOCAINE 4% PATCH 1 PATCH TOPICAL (09:14)
[2024-09-11] MEDS: PROTONIX 40 MG PO (09:14)
[2024-09-11] MEDS: BACTROBAN 2% OINTMENT 1 APPLIC NASAL ×2 (09:14→19:20)
[2024-09-11] MEDS: PACERONE 200 MG PO ×3 (09:15→22:52)
[2024-09-11] MEDS: SENOKOT-S 1 TABLET PO ×2 (09:15→19:18)
[2024-09-11] MEDS: LOW STRENGTH ASPIRIN 81 MG PO (09:15)
[2024-09-11] MEDS: ProAmatine 5 MG PO ×3 (09:15→17:52)
[2024-09-11] MEDS: MAGNESIUM OXIDE 500 MG PO ×2 (09:15→19:18)
[2024-09-11] MEDS: NSS 500 IV (09:15)
[2024-09-11] MEDS: NEURONTIN 100 MG PO ×3 (09:15→22:52)
[2024-09-11] MEDS: HEPARIN 25000 UNITS/250 ML IV (09:16)
--- NOTE | 2024-09-11 10:30 | PTCARENOTE ---
Mediastinal chest tube d/c per orders. Pt tolerated. Pt resting in bed at this time.
--- NOTE | 2024-09-11 10:41 | W.PN.CARDCBS ---
Addendum entered and electronically signed by Humaira Trejo MD 09/11/24 10:50:
I saw and examined the patient.
The Consulting It Architect's note was reviewed and I agree with the note.
Comment: General: Well developed, well nourished in NAD.
Heart: Mechanical click
Lungs: Clear anterior breath sounds
Extremities: No clubbing, cyanosis +2 edema bilaterally.
Neuro: Grossly nonfocal, awake, alert and oriented x3.\\
Severe symptomatic bicuspid aortic stenosis
s/p aortic valve replacement with #21 mm On-X mechanical aortic valve prosthesis via mini sternotomy 09/09/2024
Postop left bundle branch block last EKG no longer present.
Volume overload
Low blood pressure now stable
Continue usual postop care.
Monitor telemetry
Recheck EKG
Heparin to Coumadin
Slowly diurese as able
Blood pressure stable on midodrine
Urinary retention noted now urinating.
Original Note:
Today's Communication / Plan
-
continue post op care
IV heparin to coumadin
in SR
Impression / Plan
-
PCP: Razia Leal
Bulk Picker: Humaira Trejo
Impression:
Severe symptomatic bicuspid aortic stenosis
s/p aortic valve replacement with #21 mm On-X mechanical aortic valve prosthesis via mini sternotomy 09/09/2024, Dr. Cordova
Postop left bundle branch block
Mild aortic ectasia, ascending aorta
Moderate LVH with mild LVOT gradient
Hypothyroidism
Polycystic ovarian syndrome
Hypertension
Echocardiogram 06/30/2024: left ventricular ejection fraction 55 to 60%. Mild septal hypertrophy (1.3 cm).� Normal right ventricle. Trace MR. Bicuspid aortic valve with severe aortic valve stenosis peak/mean gradient 87/55 mmHg and aortic valve area
0.63 cmsq with trace AI.� Trace TR.
Left heart catheterization 06/23/2024 with nonobstructive coronary disease.
Plan:
- bicuspid s/p aortic valve replacement with #21 mm On-X mechanical aortic valve prosthesis via mini sternotomy 09/09/2024, Dr. Cordova
- Due to relative hypotension on midodrine 5 mg 3 times daily. She ambulated in the pandya this morning without lightheadedness or dizziness. Outpatient losartan/HCTZ remains on hold
- She has some lower extremity edema, however due to hypotension holding on diuresis for now. Discussed with patient and at bedside that she may require eventual diuresis
- Hemoglobin 9.2. Continue IV heparin to Coumadin. Goal INR for first 3 months will be 2-3 then can be reduced to 1.8 for On�X mechanical AVR
- Remains in sinus rhythm on review of telemetry overnight
- continue post op care, OOB/IS as able
- d/w nursing, CT surgery PROCUREMENT OFFICER
Progress Note - Bulk Picker
Subjective
Date of Service: September 11, 2024
feeling well. no lightheadedness with ambulation this AM. tolerating diet.
Objective
Labs:
09/11/24 03:21
09/11/24 03:21
Labs
Hgb 9.2 g/dL (12.0-16.0) L 09/11/24 03:21
Hct 27.0 % (37.0-47.0) L 09/11/24 03:21
Plt Count 167 10^3/uL (130-400) 09/11/24 03:21
PT 16.6 Sec (11.4-14.6) H 09/11/24 03:21
INR 1.28 09/11/24 03:21
APTT 34.8 Sec (23.4-35.0) 09/11/24 03:21
Sodium 133 mmol/L (135-145) L 09/11/24 03:21
Potassium 4.1 mmol/L (3.5-5.1) 09/11/24 03:21
BUN 20 mg/dl (7-17) H 09/11/24 03:21
Creatinine 0.8 mg/dL (0.6-1.0) 09/11/24 03:21
Glucose 124 mg/dl (70-99) H 09/11/24 03:21
Vital Signs and I&O:
Vital Signs
Temp Pulse Resp BP Pulse Ox
98.5 F 77 16 109/74 96
09/11/24 08:00 09/11/24 10:00 09/11/24 08:00 09/11/24 09:30 09/11/24 09:05
Vital Signs
Temp Pulse Resp BP Pulse Ox
98.5 F 77 16 109/74 96
09/11/24 08:00 09/11/24 10:00 09/11/24 08:00 09/11/24 09:30 09/11/24 09:05
Intake & Output
09/09/24 09/10/24 09/11/24 09/12/24
07:59 07:59 07:59 07:59
Intake Total 1767.6 / 1767.6 558.5 / 558.5
Output Total 1939 / 1939 630 / 630 450 / 450
Balance -172.4 / -172.4 -71.5 / -71.5 -435 / -435
Physical Exam
Physical Exam
GEN: No distress, awake, alert, oriented x3
HEENT: supple, anicteric, mmm, EOMI
LUNGS: CTA bilaterally, no wheezes/rales
CV: Reg, S1/S2, no murmur
ABD: soft, BS+, NT/ND
EXT: No cyanosis, clubbing. 1+ edema of B/L LE
NEURO: Gross non-focal
SKIN: Warm, pink, dry. No rash. Sternotomy incision c/d/i
--- NOTE | 2024-09-11 11:44 | PTCARENOTE ---
Pt assisted OOB to bathroom. Pt voided 600mL hermann urine. Assisted to chair. Remains NSR with rates in the 80s. BP 115/65. POX 97% on RA. Surgical sites stable. Pt denies pain, nausea, and shortness of breath. Cordis and PIV intact. Heparin and NSS
KVO infusing.
--- NOTE | 2024-09-11 11:44 | CM ---
Chart reviewed. Patient's at bedside. Patient is independent of ADLS, lives with her and 13 year old, 2 STH, 1 LEONOR, 0 DME. Plan is for the patient to return home. CM to follow
[2024-09-11] MEDS: FERRLECIT 110 MG IV (13:12)
[2024-09-11 16:17] LABS: APTT 53.1 Sec (23.4-35.0)
--- NOTE | 2024-09-11 16:30 | PTCARENOTE ---
Pt reassessed. SR with occasional PACs with rates in the 80s. BP 105/78. POX 94% on RA. Surgical sites stable. Heparin increased to 700units/hour as per CT NAIL CUTTER. Assisted OOB with 1 assist. Pt resting in the chair.
[2024-09-11] MEDS: COUMADIN 2.5 MG PO (17:52)
--- NOTE | 2024-09-11 19:15 | PTCARENOTE ---
Received from RN @1900. Patient sitting in chair comfortably w/ call allison in reach. AOx3. Patient denies any pain. NSR BP 102/72 HR 79. Heart sounds w/ click noted. +1 generalized edema noted. Radial and pedal pulses present. IS 750 POX 96%
RA. Occasional dry nonproductive cough. Normoactive bowel sounds. No BM noted. Voiding clear yellow urine. Sternal incision well approximated. CT dressing dry and intact. Right groin dressing dry and intact. RIJ cordis patent and intact.
Right hand PIV patent and intact. Heparin infusing per order.
[2024-09-11] MEDS: FEOSOL 325 MG PO (22:52)
[2024-09-11] MEDS: VITAMIN D3 (cholecalciferol) 25 MCG PO (22:52)
[2024-09-11 23:27] LABS: APTT 46.1 Sec (23.4-35.0)
--- NOTE | 2024-09-11 23:42 | PTCARENOTE ---
Patient reassessed. NSR BP 97/59 HR 75 POX 95% RA. PTT drawn and CT AUDREY Hidalgo notified of results. Patient washed w/ CHG, leads and gown changed.
[2024-09-12] VITALS (10 sets, daily range): BP systolic 93–124; BP diastolic 62–81; PULSE 75; O2SAT 98; BMI 37.9
--- NOTE | 2024-09-12 03:25 | W.PN.CT ---
Today's Communication / Plan
-
-pod #3
-in nsr 70s overnight. Holding BB
-BP 90's/50's, asymptomatic- was started on Midodrine 5 tid, can titrate up
-got 2.5 mg Coumadin on 09/10 and 09/11. Inr 1.4 today .
-iv Heparin increased to 900u/hr. last night for PTT of 46.1
-current meds (ASA, Coumadin, Amio, iv Heparin, Protonix, Feosol, Midodrine)
-encourage IS, OOB
Assessment / Plan
-
Assessment:
-S/P Upper mini sternotomy to the third intercostal space with central aortic and peripheral venous cannulation/AVR (21 mm On-X mechanical aortic valve) by Dr. Cordova, 09/09/24, pod#3
-Bicuspid aortic valve, type 0 morphology
-Severe aortic valve stenosis, symptomatic
-Mild aortic ectasia, ascending aorta
-Moderate left ventricular hypertrophy with mild LVOT gradient
-LVEF 60%, per intraop CALI
-Hypothyroidism
-PCOS
-Nonobstructive CAD
-Hypertension
-Class 2 obesity (BMI 36.2)
-Acute postop blood loss/Anemia (stable without transfusion)
-Acute postop atelectasis
-Acute postop lactic acidosis - resolved
-Acute postop hypovolemia with subsequent hypervolemia
-Acute postop urinary retention - straight cathed for 500 cc on 09/11
-Acute postop hyponatremia
Subjective
Procedure
S/P Upper mini sternotomy to the third intercostal space with central aortic and peripheral venous cannulation/AVR (21 mm On-X mechanical aortic valve) by Dr. Cordova, 09/09/24
-
Date of Service: September 12, 2024
Objective Data
-
Lab Results
09/12/24 03:52
09/12/24 03:52
PT 16.6 Sec (11.4-14.6) H 09/11/24 03:21
INR 1.28 09/11/24 03:21
APTT 46.1 Sec (23.4-35.0) H 09/11/24 23:05
Vital Signs
Vital Signs
Temp Pulse Resp BP Pulse Ox
98.4 F 77 17 93/68 98
09/12/24 04:07 09/12/24 04:00 09/12/24 04:07 09/12/24 03:59 09/12/24 04:07
CT Intake/Output/Weight
09/11/24 09/11/24 09/12/24
06:59 18:59 06:59
Intake Total 100 / 582.1 384 / 437 53 / 437
Output Total 595 / 685 2950 / 4750 1800 / 4750
Balance -495 / -102.9 -2566 / -4313 -1747 / -4313
SaO2: 95
Physical Exam
-
General: AOx3
Cardiovascular: Regular rate & rhythm
Respiratory: Decreased Breath Sounds
Sternum: Stable
Incision: Clean, Dry and Intact
Extremities: No Edema
[2024-09-12 04:01] LABS: Hematocrit 26.9 % (37.0-47.0); Hemoglobin 8.9 g/dL (12.0-16.0); Mean Corp Hgb Conc. 33.1 g/dL (33.0-37.0); Mean Corpuscular Hgb 29.5 pg (27.0-31.0); Mean Corpuscular Volume 89.1 fL (81.0-99.0); Mean Platelet Volume 9.3 fL (7.4-10.4); Platelet Count 175 10^3/uL (130-400); Red Blood Cell Count 3.02 10^6/uL (4.20-5.40); White Blood Cell Count 11.1 10^3/uL (4.8-10.8)
[2024-09-12 04:29] LABS: Blood Urea Nitrogen 12 mg/dl (7-17); Carbon Dioxide 25 mmol/L (22-30); Chloride 113 mmol/L (98-107); Estimated Creatinine Clearance > 125 ml/min; Glucose 98 mg/dl (70-99); Magnesium 2.1 mg/dl (1.6-2.3); Potassium 3.8 mmol/L (3.5-5.1); Sodium 140 mmol/L (135-145); eGFR > 60.00
--- NOTE | 2024-09-12 04:34 | PTCARENOTE ---
Patient reassessed. NSR BP 93/68 HR 77 POX 98% RA. Labs drawn CT AUDREY Hidalgo notified. Patient voiding clear yellow urine.
[2024-09-12] MEDS: SYNTHROID 150 MCG PO (05:35)
[2024-09-12] MEDS: TYLENOL 1000 MG PO ×3 (05:35→22:18)
[2024-09-12] MEDS: KCL 40 MEQ PO (05:36)
[2024-09-12 06:13] LABS: INR 1.41; PT 17.8 Sec (11.4-14.6)
[2024-09-12 06:14] LABS: APTT 59.5 Sec (23.4-35.0)
[2024-09-12] MEDS: SENOKOT-S 1 TABLET PO ×2 (08:22→20:00)
[2024-09-12] MEDS: ProAmatine 5 MG PO (08:22)
[2024-09-12] MEDS: PROTONIX 40 MG PO (08:22)
[2024-09-12] MEDS: MAGNESIUM OXIDE 500 MG PO ×2 (08:22→20:00)
[2024-09-12] MEDS: NEURONTIN 100 MG PO ×3 (08:23→22:21)
[2024-09-12] MEDS: LIDOCAINE 4% PATCH 1 PATCH TOPICAL (08:23)
[2024-09-12] MEDS: PACERONE 200 MG PO ×3 (08:23→22:19)
[2024-09-12] MEDS: LOW STRENGTH ASPIRIN 81 MG PO (08:23)
[2024-09-12] MEDS: BACTROBAN 2% OINTMENT 1 APPLIC NASAL ×2 (08:30→20:01)
--- NOTE | 2024-09-12 10:08 | PTCARENOTE ---
Rec'd pt this shift awake and alert with RT IJ cordis on Heparin at 900 units/hr. Pt OOB up in chair for meals. NSR on monitor, RA, lungs clear. Pt encouraged to use IS. Pt denies SOB, denies pain. AM meds given. See worklist for VS/I and O and
assessments.
--- NOTE | 2024-09-12 11:54 | CM ---
Chart reviewed. Patient is independent of ADLS, lives with her and 13 yo, in a 2 STH, 1 LEONOR, 0 DME. Plan is for the patient to return home with CT Transitional RN. CM to follow
--- NOTE | 2024-09-12 13:06 | W.PN.CARDCBS ---
Addendum entered and electronically signed by Humaira Trejo MD 09/12/24 13:49:
I saw and examined the patient.
The Pediatrics Teacher's note was reviewed and I agree with the note.
Comment: Walking in the hallways and doing well today postop. Status post aortic valve replacement with mechanical valve. Blood pressure has been stable. Volume status has been positive and now diuresing well.
Exam without change with mechanical click. Volume overload noted.
Telemetry, EKG, labs independently reviewed by me.
- Continue usual postop care
- Continue gentle diuresis
- Follow blood pressure
- Increase activity as tolerates
- Coumadin being currently managed by primary service.
-Postop left bundle branch block with no recurrence.
Original Note:
Today's Communication / Plan
-
continue post op care
IV heparin to coumadin. goal INR 2-3
follow BPs.
diurese when able
Impression / Plan
-
PCP: Razia Leal
Fur Scraper: Humaira Trejo
Impression:
Severe symptomatic bicuspid aortic stenosis
s/p aortic valve replacement with #21 mm On-X mechanical aortic valve prosthesis via mini sternotomy 09/09/2024, Dr. Cordova
Postop left bundle branch block
Mild aortic ectasia, ascending aorta
Moderate LVH with mild LVOT gradient
Hypothyroidism
Polycystic ovarian syndrome
Hypertension
Echocardiogram 06/30/2024: left ventricular ejection fraction 55 to 60%. Mild septal hypertrophy (1.3 cm).� Normal right ventricle. Trace MR. Bicuspid aortic valve with severe aortic valve stenosis peak/mean gradient 87/55 mmHg and aortic valve area
0.63 cmsq with trace AI.� Trace TR.
Left heart catheterization 06/23/2024 with nonobstructive coronary disease.
Plan:
- bicuspid s/p aortic valve replacement with #21 mm On-X mechanical aortic valve prosthesis via mini sternotomy 09/09/2024, Dr. Cordova
- Due to relative hypotension on midodrine 5 mg TID. remains without lightheadedness or dizziness. wean as able. OP losartan/HCTZ remains on hold
- She has some lower extremity edema and weight up from presurgery, however due to hypotension holding on diuresis for now. would attempt to diurese when able
- Hemoglobin 9.2. Continue IV heparin to Coumadin. INR 1.4 on 09/12. Goal INR for first 3 months will be 2-3 then can be reduced to 1.8 for On�X mechanical AVR
- Remains in sinus rhythm on review of telemetry overnight
- continue post op care, OOB/IS as able
- d/w nursing, CT surgery [employer] M[employer] ROLLER
Progress Note - Fur Scraper
Subjective
Date of Service: September 12, 2024
doing well. no complaints
Objective
Labs:
09/12/24 03:52
09/12/24 03:52
Labs
Hgb 8.9 g/dL (12.0-16.0) L 09/12/24 03:52
Hct 26.9 % (37.0-47.0) L 09/12/24 03:52
Plt Count 175 10^3/uL (130-400) 09/12/24 03:52
PT 17.8 Sec (11.4-14.6) H 09/12/24 05:47
INR 1.41 09/12/24 05:47
APTT 59.5 Sec (23.4-35.0) H 09/12/24 05:47
Sodium 140 mmol/L (135-145) 09/12/24 03:52
Potassium 3.8 mmol/L (3.5-5.1) 09/12/24 03:52
BUN 12 mg/dl (7-17) 09/12/24 03:52
Creatinine 0.6 mg/dL (0.6-1.0) 09/12/24 03:52
Glucose 98 mg/dl (70-99) 09/12/24 03:52
Vital Signs and I&O:
Vital Signs
Temp Pulse Resp BP Pulse Ox
97.8 F 76 18 118/74 98
09/12/24 12:53 09/12/24 09:06 09/12/24 12:53 09/12/24 09:06 09/12/24 12:53
Vital Signs
Temp Pulse Resp BP Pulse Ox
97.8 F 76 18 118/74 98
09/12/24 12:53 09/12/24 09:06 09/12/24 12:53 09/12/24 09:06 09/12/24 12:53
Intake & Output
09/10/24 09/11/24 09/12/24 09/13/24
07:59 07:59 07:59 07:59
Intake Total 1767.6 / 1767.6 558.5 / 558.5 437 / 437 1095 / 1095
Output Total 1940 / 1940 630 / 630 4750 / 4750 600 / 600
Balance -172.4 / -172.4 -71.5 / -71.5 -4313 / -4313 495 / 495
Physical Exam
Physical Exam
GEN: No distress, awake, alert, oriented x3
HEENT: supple, anicteric, mmm, eomi
LUNGS: CTA B/L, no wheezes
CV: Reg, S1/S2, no murmur
ABD: soft, BS+, NT/ND
EXT: No cyanosis, clubbing, edema
NEURO: Gross non-focal
SKIN: Warm, pink, dry. No rash. Sternotomy incision c/d/i.
[2024-09-12] MEDS: FERRLECIT 110 MG IV (13:54)
[2024-09-12] MEDS: NSS IV (15:16)
[2024-09-12] MEDS: HEPARIN 25000 UNITS/250 ML IV (17:01)
[2024-09-12] MEDS: COUMADIN 4 MG PO (17:02)
--- NOTE | 2024-09-12 17:25 | PTCARENOTE ---
Pt ambulating in room and in hallway. Heparin drip at 1000 units/hr. Cordis d/c'd.
--- NOTE | 2024-09-12 20:00 | PTCARENOTE ---
Assumed care of patient at 1900. Patient found oob in chair at time of assessment. Patient is AOx4, follows commands appropriately, moves all extremities. Lung sounds are clear and equal bilaterally. saO2 98% on RA. Heart sounds are audible, a click
is present on auscultation, normal pulses throughout with trace BLE edema. Patient has active BS and reports successful BM during the day. Patient is voiding in the bathroom. Patient has mini sternal incision approx with surg adhesive SLINGER SEQUINS, CT wounds
are open not approx, scabbed and TYRONE. There is a R hand PIV receiving heparin @1000 units/hr. VSS. Assisted patient back to bed without incident.
[2024-09-12 20:35] LABS: APTT 80.3 Sec (23.4-35.0)
[2024-09-12] MEDS: FEOSOL 325 MG PO (22:19)
[2024-09-12] MEDS: VITAMIN D3 (cholecalciferol) 25 MCG PO (22:19)
[2024-09-13] VITALS (7 sets, daily range): BP systolic 106–139; BP diastolic 70–94; PULSE 76; O2SAT 97–98; BMI 38.3
--- NOTE | 2024-09-13 | PTCARENOTE ---
Patient reassessed. VSS. Remains in SR on the monitor. Patient requested to sit in chair to sleep this night. Assisted oob to chair without incident. Call allison within reach.
--- NOTE | 2024-09-13 04:19 | W.PN.CT ---
Today's Communication / Plan
-
-pod #4
-in nsr 70s overnight. Holding BB
-BP's improved (110-120's/60-70's)
-got 4 mg Coumadin yesterday, 2.5mg on 09/10 and 09/11. Inr 1.64 today .
-iv Heparin per protocol
-current meds (ASA, Coumadin, Amio, iv Heparin, Protonix, Feosol, Midodrine)
-encourage IS, OOB
-discharge planning once INR therapeutic
Assessment / Plan
-
Assessment:
-S/P Upper mini sternotomy to the third intercostal space with central aortic and peripheral venous cannulation/AVR (21 mm On-X mechanical aortic valve) by Dr. Cordova, 09/09/24, pod#4
-Bicuspid aortic valve, type 0 morphology
-Severe aortic valve stenosis, symptomatic
-Mild aortic ectasia, ascending aorta
-Moderate left ventricular hypertrophy with mild LVOT gradient
-LVEF 60%, per intraop CALI
-Hypothyroidism
-PCOS
-Nonobstructive CAD
-Hypertension
-Class 2 obesity (BMI 36.2)
-Acute postop blood loss/Anemia (stable without transfusion)
-Acute postop atelectasis
-Acute postop lactic acidosis - resolved
-Acute postop hypovolemia with subsequent hypervolemia
-Acute postop urinary retention - straight cathed for 500 cc on 09/11
-Acute postop hyponatremia
Subjective
Procedure
S/P Upper mini sternotomy to the third intercostal space with central aortic and peripheral venous cannulation/AVR (21 mm On-X mechanical aortic valve) by Dr. Cordova, 09/09/24
-
Date of Service: September 13, 2024
Objective Data
-
PT Cancelled 09/13/24 03:55
INR Cancelled 09/13/24 03:55
APTT 80.3 Sec (23.4-35.0) H 09/12/24 20:13
Vital Signs
Vital Signs
Temp Pulse Resp BP Pulse Ox
98.2 F 76 20 124/81 98
09/12/24 23:00 09/13/24 00:00 09/12/24 23:00 09/12/24 22:25 09/12/24 23:00
CT Intake/Output/Weight
09/12/24 09/12/24 09/13/24
06:59 18:59 06:59
Intake Total 53 / 437 1325 / 1365 40 / 1365
Output Total 1800 / 4750 1100 / 1775 675 / 1775
Balance -1747 / -4313 225 / -410 -635 / -410
SaO2: 98
Physical Exam
-
General: AOx3
Cardiovascular: Regular rate & rhythm
Respiratory: Decreased Breath Sounds
Sternum: Stable
Incision: Clean, Dry and Intact
Extremities: No Edema
[2024-09-13 04:20] LABS: INR 1.64; PT 19.6 Sec (11.4-14.6)
[2024-09-13 04:22] LABS: APTT 77.4 Sec (23.4-35.0); Hematocrit 29.1 % (37.0-47.0); Hemoglobin 9.8 g/dL (12.0-16.0); Mean Corp Hgb Conc. 33.7 g/dL (33.0-37.0); Mean Corpuscular Hgb 29.6 pg (27.0-31.0); Mean Corpuscular Volume 87.9 fL (81.0-99.0); Mean Platelet Volume 9.2 fL (7.4-10.4); Platelet Count 217 10^3/uL (130-400); Red Blood Cell Count 3.31 10^6/uL (4.20-5.40); Red Cell Dist. Width 13.2 % (11.5-14.5); White Blood Cell Count 9.5 10^3/uL (4.8-10.8)
[2024-09-13 04:34] LABS: Blood Urea Nitrogen 11 mg/dl (7-17); Calcium 8.8 mg/dl (8.4-10.2); Carbon Dioxide 21 mmol/L (22-30); Chloride 111 mmol/L (98-107); Estimated Creatinine Clearance > 125 ml/min; Glucose 100 mg/dl (70-99); Magnesium 2.1 mg/dl (1.6-2.3); Potassium 4.3 mmol/L (3.5-5.1); Sodium 139 mmol/L (135-145); eGFR > 60.00
[2024-09-13] MEDS: TYLENOL 1000 MG PO ×3 (05:50→20:53)
[2024-09-13] MEDS: SYNTHROID 150 MCG PO (05:50)
--- NOTE | 2024-09-13 06:27 | PTCARENOTE ---
Patient reassessed. Remains in SR on the monitor. Hygiene care provided. Patient requesting to return to bed this AM. Assisted patient back to bed. VSS. Labs obtained 2xPTT are therapeutic. Call allison within reach.
--- NOTE | 2024-09-13 08:00 | PTCARENOTE ---
pt received from previous RN, oriented, OOB in chair. SR on the monitor, HR 70-80s. +click. SBP 120s. palpable pulses. pt on RA, 96% POX. lungs clear. IS encouraged. pt abdomen s/n, denies n/v. diet tolerated well. +BS, +BM. voids. ambulates w/
stand by. sternal incision ARMATURE REPAIRER. chest tube sites ARMATURE REPAIRER. surgical bra in place. R groin dressing c/d/i. PIV. heparin gtt running as ordered. see worklist for VS, I&O, and assessment.
[2024-09-13] MEDS: SENOKOT-S 1 TABLET PO (08:50)
[2024-09-13] MEDS: PROTONIX 40 MG PO (08:50)
[2024-09-13] MEDS: PACERONE 200 MG PO ×3 (08:50→20:52)
[2024-09-13] MEDS: NEURONTIN 100 MG PO ×3 (08:50→20:53)
[2024-09-13] MEDS: MAGNESIUM OXIDE 500 MG PO ×2 (08:50→20:52)
[2024-09-13] MEDS: LOW STRENGTH ASPIRIN 81 MG PO (08:50)
[2024-09-13] MEDS: BACTROBAN 2% OINTMENT 1 APPLIC NASAL (08:50)
[2024-09-13] MEDS: LOPRESSOR 12.5 MG PO ×2 (08:50→20:52)
[2024-09-13] MEDS: LIDOCAINE 4% PATCH TOPICAL (09:27)
--- NOTE | 2024-09-13 11:45 | PTCARENOTE ---
pt VSS, no changes in assessment. pt completed stairs w/ CR. ambulates to bathroom, voids. OOB in chair for lunch.
[2024-09-13] MEDS: NSS IV (13:52)
--- NOTE | 2024-09-13 16:00 | PTCARENOTE ---
pt VSS, resting between care. OOB to chair for dinner, 2V CXR completed. IS encouraged. voids in bathroom.
[2024-09-13] MEDS: KCL 20 MEQ PO (16:53)
[2024-09-13] MEDS: LASIX 40 MG PO (16:53)
[2024-09-13] MEDS: HEPARIN 25000 UNITS/250 ML IV (18:06)
[2024-09-13] MEDS: COUMADIN 5 MG PO (18:06)
--- NOTE | 2024-09-13 20:00 | PTCARENOTE ---
assumed care of patient @ 1900. received pt sitting in chair, AOx3. VSS on RA. NSR on tele. Click present on auscultation. +pulses, -edema. Lungs clear, diminished on room air satting high 90s. +BS, soft nontender abd. voiding clear yellow urine in
toilet. Sternum OPTICAL INSTRUMENT SPECIALIST. CT dressings CDI. R hand PIV with heparin infusing at 1000. pt resting comfortably in bed with call allison within reach .
[2024-09-13] MEDS: VITAMIN D3 (cholecalciferol) 25 MCG PO (20:53)
[2024-09-13] MEDS: MELATONIN 5 MG PO (20:53)
[2024-09-13] MEDS: FEOSOL 325 MG PO (20:53)
[2024-09-13] MEDS: SENOKOT-S PO (20:54)
[2024-09-14] VITALS (7 sets, daily range): BP systolic 113–139; BP diastolic 72–92; BMI 37.6
--- NOTE | 2024-09-14 00:48 | PTCARENOTE ---
pt sleeping in chair, states much more comfortable then bed. resting comfortably with call allison within reach .
--- NOTE | 2024-09-14 04:00 | PTCARENOTE ---
pt back in bed, resting comfortably, labs drawn and sent. call allison within reach .
[2024-09-14 04:40] LABS: INR 1.81; PT 21.2 Sec (11.4-14.6)
[2024-09-14 04:54] LABS: Blood Urea Nitrogen 14 mg/dl (7-17); Calcium 9.2 mg/dl (8.4-10.2); Carbon Dioxide 23 mmol/L (22-30); Chloride 107 mmol/L (98-107); Estimated Creatinine Clearance 94 ml/min; Glucose 95 mg/dl (70-99); Potassium 4.5 mmol/L (3.5-5.1); Sodium 140 mmol/L (135-145); eGFR > 60.00
--- NOTE | 2024-09-14 05:55 | W.PN.CT ---
Today's Communication / Plan
-
-pod #5
-BP's improved (110-120's/60-70's)
-got 5 mg Coumadin yesterday, Inr 1.8 today .
-iv Heparin per protocol
-current meds (ASA, Coumadin, Amio, iv Heparin, Protonix, Feosol, Midodrine)
-encourage IS, OOB
-discharge planning once INR therapeutic
Assessment / Plan
-
Assessment:
-S/P Upper mini sternotomy to the third intercostal space with central aortic and peripheral venous cannulation/AVR (21 mm On-X mechanical aortic valve) by Dr. Cordova, 09/09/24, pod#5
-Bicuspid aortic valve, type 0 morphology
-Severe aortic valve stenosis, symptomatic
-Mild aortic ectasia, ascending aorta
-Moderate left ventricular hypertrophy with mild LVOT gradient
-LVEF 60%, per intraop CALI
-Hypothyroidism
-PCOS
-Nonobstructive CAD
-Hypertension
-Class 2 obesity (BMI 36.2)
-Acute postop blood loss/Anemia (stable without transfusion)
-Acute postop atelectasis
-Acute postop lactic acidosis - resolved
-Acute postop hypovolemia with subsequent hypervolemia
-Acute postop urinary retention - straight cathed for 500 cc on 09/11
-Acute postop hyponatremia
Subjective
Procedure
S/P Upper mini sternotomy to the third intercostal space with central aortic and peripheral venous cannulation/AVR (21 mm On-X mechanical aortic valve) by Dr. Cordova, 09/09/24
-
Date of Service: September 14, 2024
Objective Data
-
Lab Results
09/13/24 03:55
09/14/24 04:04
PT 21.2 Sec (11.4-14.6) H 09/14/24 04:04
INR 1.81 09/14/24 04:04
APTT 69.0 Sec (23.4-35.0) H 09/14/24 04:04
Vital Signs
Vital Signs
Temp Pulse Resp BP Pulse Ox
97.7 F 70 16 139/85 98
09/14/24 04:30 09/14/24 05:00 09/14/24 04:30 09/14/24 04:05 09/14/24 04:30
CT Intake/Output/Weight
09/13/24 09/13/24 09/14/24
06:59 18:59 06:59
Intake Total 120 / 1445 550 / 550
Output Total 900 / 2000 1450 / 2150 700 / 2150
Balance -780 / -555 -900 / -1600 -700 / -1600
SaO2: 98
Physical Exam
-
General: Awake and Oriented
Cardiovascular: Regular rate & rhythm
Respiratory: Clear and Equal
Sternum: Stable
Incision: Clean and Dry
Extremities: No Edema and No Erythema
Data Reviewed
-
Lab Results: Results Reviewed
Medications: Active Meds Reviewed
Chest X-Ray: Report Reviewed
ECG: Report Reviewed
--- NOTE | 2024-09-14 08:30 | PTCARENOTE ---
Patient received from machinist 2nd shift RN . PT aaox3 sitting in chair w/o complaints of pain. NSR on monitor w/ audible click hs, VSS. Lung sounds clear on RA O2 sat 100%, GI and wnl; all surgical sight CDI; R PIV CDI; PT anticipated to be be
discharged 09/15; PT ambulating around unit w/ family independently. See worklist for detailed assessment
[2024-09-14] MEDS: MAGNESIUM OXIDE 500 MG PO ×2 (09:07→19:42)
[2024-09-14] MEDS: LOPRESSOR 12.5 MG PO ×2 (09:07→19:42)
[2024-09-14] MEDS: TYLENOL 1000 MG PO ×2 (09:08→22:22)
[2024-09-14] MEDS: PROTONIX 40 MG PO (09:08)
[2024-09-14] MEDS: LOW STRENGTH ASPIRIN 81 MG PO (09:09)
[2024-09-14] MEDS: NEURONTIN 100 MG PO ×3 (09:09→22:22)
[2024-09-14] MEDS: SENOKOT-S 1 TABLET PO ×2 (09:09→19:42)
[2024-09-14] MEDS: PACERONE 200 MG PO ×3 (09:10→22:23)
[2024-09-14] MEDS: LIDOCAINE 4% PATCH TOPICAL (09:10)
[2024-09-14] MEDS: SYNTHROID 150 MCG PO (09:10)
--- NOTE | 2024-09-14 12:00 | PTCARENOTE ---
No change from previous assessment; see worklist for detailed assessment
[2024-09-14] MEDS: TYLENOL PO (14:57)
[2024-09-14] MEDS: NSS IV (14:57)
[2024-09-14] MEDS: COUMADIN 5 MG PO (17:23)
--- NOTE | 2024-09-14 17:30 | PTCARENOTE ---
no change from previous assessment; see worklist for detailed assessment
[2024-09-14 18:56] LABS: APTT 110.3 Sec (23.4-35.0)
[2024-09-14] MEDS: HEPARIN 25000 UNITS/250 ML IV (19:11)
--- NOTE | 2024-09-14 19:45 | PTCARENOTE ---
Patient received from RN @1900. Patient sitting in chair w/ call allison in reach. AOx3. NSR BP 123/75 HR 89 Heart sounds w/ click audible. Trace generalized edema. Radial and pedal pulses present. POX 99% RA. Lyungs diminished throughout. IS
1000. Bowel sounds normoactive. Voiding clear yellow urine. Sternum well approximated TYRONE. Right groin dressing dry and intact. Heparin infusing per protocol.
[2024-09-14] MEDS: VITAMIN D3 (cholecalciferol) 25 MCG PO (22:22)
[2024-09-14] MEDS: MELATONIN 5 MG PO (22:22)
[2024-09-14] MEDS: FEOSOL 325 MG PO (22:22)
[2024-09-15] VITALS (8 sets, daily range): BP systolic 94–116; BP diastolic 65–76; PULSE 79; O2SAT 97; BMI 37.3
--- NOTE | 2024-09-15 00:16 | PTCARENOTE ---
Patient reassessed. NSR BP 111/67 HR 76 POX 96% RA. Patients gown and bra changed.
--- NOTE | 2024-09-15 02:45 | W.PN.CT ---
Today's Communication / Plan
-
No major events overnight�
5 mg Coumadin, INR on 09/14, goal 2.0 to 3.0�6/2 INR is 2.15
IV Heparin drip (73 to 111) per protocol�
Current meds (ASA, Coumadin, Amio, iv Heparin, Protonix, Feosol, Midodrine)�
Encourage IS, OOB�
Discharge planning once INR therapeutic�
Assessment / Plan
-
Assessment:
-S/P Upper mini sternotomy to the third intercostal space with central aortic and peripheral venous cannulation/AVR (21 mm On-X mechanical aortic valve) by Dr. Cordova, 09/09/24, pod#6
-Bicuspid aortic valve, type 0 morphology
-Severe aortic valve stenosis, symptomatic
-Mild aortic ectasia, ascending aorta
-Moderate left ventricular hypertrophy with mild LVOT gradient
-LVEF 60%, per intraop CALI
-Hypothyroidism
-PCOS
-Nonobstructive CAD
-Hypertension
-Class 2 obesity (BMI 36.2)
-Acute postop blood loss/Anemia (stable without transfusion)
-Acute postop atelectasis
-Acute postop lactic acidosis - resolved
-Acute postop hypovolemia with subsequent hypervolemia
-Acute postop urinary retention - straight cathed for 500 cc on 09/11
-Acute postop hyponatremia
Subjective
Procedure
S/P Upper mini sternotomy to the third intercostal space with central aortic and peripheral venous cannulation/AVR (21 mm On-X mechanical aortic valve) by Dr. Cordova, 09/09/24
-
Date of Service: September 15, 2024
Objective Data
-
Lab Results
09/13/24 03:55
09/14/24 04:04
PT 21.2 Sec (11.4-14.6) H 09/14/24 04:04
INR 1.81 09/14/24 04:04
APTT 110.3 Sec (23.4-35.0) H 09/14/24 18:36
Vital Signs
Vital Signs
Temp Pulse Resp BP Pulse Ox
98 F 76 18 111/67 99
09/14/24 23:30 09/15/24 00:13 09/14/24 23:30 09/15/24 00:13 09/15/24 00:09
CT Intake/Output/Weight
09/14/24 09/14/24 09/15/24
06:59 18:59 06:59
Intake Total 411 / 433 22 / 433
Output Total 700 / 2150 600 / 600
Balance -700 / -1600 -189 / -167 22 / -167
SaO2: 99
[2024-09-15 03:41] LABS: Hematocrit 29.6 % (37.0-47.0); Hemoglobin 9.8 g/dL (12.0-16.0); Mean Corp Hgb Conc. 33.1 g/dL (33.0-37.0); Mean Corpuscular Hgb 29.7 pg (27.0-31.0); Mean Corpuscular Volume 89.7 fL (81.0-99.0); Platelet Count 259 10^3/uL (130-400); Red Cell Dist. Width 13.1 % (11.5-14.5); White Blood Cell Count 8.9 10^3/uL (4.8-10.8)
[2024-09-15 03:52] LABS: INR 2.15; PT 24.2 Sec (11.4-14.6)
[2024-09-15 03:54] LABS: APTT 77.6 Sec (23.4-35.0)
--- NOTE | 2024-09-15 03:54 | PTCARENOTE ---
Patient reassessed. NSR BP 116/75 HR 82 POX 97%. Labs drawn. Patient ambulating to bathroom to void.
[2024-09-15 04:14] LABS: Blood Urea Nitrogen 12 mg/dl (7-17); Calcium 8.8 mg/dl (8.4-10.2); Carbon Dioxide 22 mmol/L (22-30); Chloride 110 mmol/L (98-107); Estimated Creatinine Clearance 107 ml/min; Glucose 99 mg/dl (70-99); Magnesium 1.9 mg/dl (1.6-2.3); Potassium 4.3 mmol/L (3.5-5.1); Sodium 139 mmol/L (135-145); eGFR > 60.00
[2024-09-15] MEDS: SYNTHROID 150 MCG PO (05:49)
[2024-09-15] MEDS: TYLENOL 1000 MG PO (05:49)
--- NOTE | 2024-09-15 08:00 | PTCARENOTE ---
Resumed care of patient. Walking rounds completed with previous RN. Pt assessed while she was sitting in the chair. Pt alert and oriented x4. Rates sternal pain 2-3/10. Denies nausea and shortness of breath. WYLIE with equal strength in all
extremities. Ambulates with standby assist in the room/pandya. NSR on tele with rates in the 70s-80s. BP 106/65. +click. Bilateral radial and DP pulses palpable. Bilateral lower extremity edema +1. POX 96% on RA. Lungs diminished in the bases. IS
encouraged-1000mL achieved. No cough noted. Abdomen soft, round, nontender. +BS. Pt voiding spontaneously, reports no issues. Mini sternal incision approximated, PBX OPERATOR. Old chest tube site approximated, PBX OPERATOR. Right groin puncture site with dressing
CDI. Right hand 20g PIV intact, heparin gtt discontinued per orders. See MAR for medication administration. See worklist for complete nursing assessment. Plan of care reviewed and patient in agreement.
[2024-09-15] MEDS: PROTONIX 40 MG PO (08:02)
[2024-09-15] MEDS: LOW STRENGTH ASPIRIN 81 MG PO (08:02)
[2024-09-15] MEDS: MAGNESIUM OXIDE 500 MG PO (08:02)
[2024-09-15] MEDS: LOPRESSOR 12.5 MG PO (08:02)
[2024-09-15] MEDS: SENOKOT-S 1 TABLET PO (08:02)
[2024-09-15] MEDS: NEURONTIN 100 MG PO (08:02)
[2024-09-15] MEDS: LIDOCAINE 4% PATCH 1 PATCH TOPICAL (08:02)
[2024-09-15] MEDS: PACERONE 200 MG PO (08:03)
--- NOTE | 2024-09-15 08:05 | W.DCSUMMARY ---
Discharge Summary
Discharge Data
Date of Admission: 09/09/24
Date of Discharge: 09/15/24
-
Pending Results: No
Hospital Course
Primary care physician: Razia Leal
Outpatient sheeting puller: Humaira Blandon
Inpatient consultants: [facility] Cardiology, Pulmonary marine architect
Procedures:
1. AVR #21mmOn-X (mechanical)
Primary Diagnosis:
1. bicuspid aortic valve, aortic stenosis
Secondary Diagnoses:
1. Hypothyroidism
2. Polycystic ovarian syndrome
3. Hypertension
HPI: 44-year-old female with bicuspid aortic valve and aortic stenosis was electively admitted on 09/09/2024 for mitral valve replacement.
Hospital course: Patient underwent a mini aortic valve replacement #21 mm On�X mechanical valve by Dr. Shayne Cordova. IntraOp CALI reported an EF of 60% with AV gradients of 17/8 mmHg, and no AI. Patient received no intraoperative blood products and
returned to CVICU on Levophed. Patient was extubated at approximately 530 the evening of surgery and Levophed weaned off. Patient was given lactated Ringer's and albumin for a lactate level of 4.3. On postoperative day #1, temporary ventricular
wires were removed. Coumadin 2.5 mg was started. On postoperative day #2, low-dose heparin was initiated and Coumadin continued. On postoperative day #6, INR was 2.15 (therapeutic) and heparin drip was discontinued. Patient will be discharged
home on Coumadin 5 mg daily with goal INR of 2 to 3 x 3 months, then 1.8 as permanent goal. Patient may resume metformin and control pills for her PCOS. Patient will be followed by transitional nurse team with INR to be drawn on 09/[address] Humaira Trejo for further adjustment.
Home medication changes:
Stop Losartan-HCTZ as BP well controlled
Lasix as needed for weight gain of more than 3 pounds in 1 day or 5 pounds in 1 week
Discharge Plan
-
Patient Disposition: Home (Routine Discharge)
Discharge Diagnosis/Procedures: mechanical aortic valve replacement
Condition: Good
Diet: Low Cholesterol and Low Sodium
Activity: No strenuous activity
Driving Restrictions: Not until seen by your Dr
Bathing Restrictions: OK to Shower
Blood Work: INR 6/4 w/ report to Dr Humaira Trejo for dose adjustment. INR GOAL 2-3 x 3 months and then goal 1.8
Other Services: Cardiac Rehab
Specialty Instructions: Weigh Daily- Call MD for wt gain/loss 3 lbs overnight/5 lbs in 1 week
Referrals:
CT Transitional Care Nurse [Outside]
Referral Note: The Cardiothoracic Transitional Care Nurse will call you to set up a visit in 1-2 days.
[facility] [Outside]
Referral Note: Cardiac Rehab Orientation appointment is on October 15, 2024 @ 0930am.
The Cardiac Rehab gym is located on the first floor of the [facility].
Razia Leal DO [Family Provider, Family Practice]
Emma Mcgee PA-C [Specified Professional Personl, Cardiology] - 10/29/24 1:20 pm
Shayne Cordova MD [Active, Cardiac Surgery] - 10/13/24 2:00 pm
Prescriptions:
New
cyclobenzaprine 10 mg Tablet
5 mg PO Q8HPRN PRN (Reason: muscle spasm) Qty: 10 0RF
aspirin 81 mg Tablet,Chewable
81 mg PO DAILY Qty: 0 0RF
gabapentin 100 mg Capsule
100 mg PO TID Qty: 30 0RF
acetaminophen 325 mg Tablet
650 mg PO Q4HPRN PRN (Reason: mild pain,headache,temp >101F ) Qty: 0 0RF
pantoprazole 40 mg Tablet,Delayed Release (Dr/Ec)
40 mg PO DAILY Qty: 30 1RF
oxycodone 5 mg Tablet
5 mg PO Q4HPRN PRN (Reason: severe pain) Qty: 20 0RF
furosemide [Lasix] 20 mg tablet
20 mg PO .daily prn Qty: 20 0RF
metoprolol succinate [Toprol XL] 25 mg tablet extended release 24 hr
25 mg PO DAILY Qty: 30 1RF
warfarin [Jantoven] 5 mg tablet
5 mg PO QPM Qty: 30 1RF
Continued
desogestrel-ethinyl estradiol [Apri] 0.15-0.03 mg Tablet
1 tab PO HS
cyanocobalamin (vitamin B-12) [Vitamin B-12] 500 mcg Tablet
500 mcg PO HS
ferrous sulfate [iron] 325 mg (65 mg iron) Tablet
325 mg PO HS
levothyroxine 150 mcg Tablet
150 mcg PO DAILY
metformin 500 mg Tablet Extended Release 24 Hr
500 mg PO HS
cholecalciferol (vitamin D3) [Vitamin D3] 25 mcg (1,000 unit) Capsule
25 mcg PO HS
Discontinued
losartan-hydrochlorothiazide 50-12.5 mg Tablet
1 tab PO HS
Discharge Orders:
Discharge Patient (As Directed); Ordered 09/15/24
Ordered By: Riri Calle
Care Plan Goals
Care Plan Goals:
Problem: Readiness for enhanced knowledge related to diagnosis and treatment plan
Goal: Understand your diagnosis and treatment plan needs, including medications if applicable.
Instructions: Know your diagnosis, underlying causes and treatment plan options, including medications if applicable. Consult with your health care team to learn about your diagnosis and treatment plan, including medications if applicable.
Discharge Date and Time
Print Language: [place]
[2024-09-15] MEDS: NSS IV (08:27)
--- NOTE | 2024-09-15 09:39 | W.PN.CARDCBS ---
Today's Communication / Plan
-
Continue local care for muscle aches and pains along with pain management
Receiving Coumadin goal INR is as noted
Increase activity as tolerates
Impression / Plan
-
PCP: Razia Leal
Environmental Solutions Engineer: Humaira Trejo
Impression:
Severe symptomatic bicuspid aortic stenosis
s/p aortic valve replacement with #21 mm On-X mechanical aortic valve prosthesis via mini sternotomy 09/09/2024, Dr. Cordova
Postop left bundle branch block
Mild aortic ectasia, ascending aorta
Moderate LVH with mild LVOT gradient
Hypothyroidism
Polycystic ovarian syndrome
Hypertension
Echocardiogram 06/30/2024: left ventricular ejection fraction 55 to 60%. Mild septal hypertrophy (1.3 cm).� Normal right ventricle. Trace MR. Bicuspid aortic valve with severe aortic valve stenosis peak/mean gradient 87/55 mmHg and aortic valve area
0.63 cmsq with trace AI.� Trace TR.
Left heart catheterization 06/23/2024 with nonobstructive coronary disease.
Plan:
- bicuspid s/p aortic valve replacement with #21 mm On-X mechanical aortic valve prosthesis via mini sternotomy 09/09/2024, Dr. Cordova
- Blood pressure stable. Continue to follow. At this time she has not required her outpatient antihypertensive medications.
- She has some lower extremity edema and weight up from presurgery, she is diuresing on her own. Continue to follow.
- Continue IV heparin to Coumadin. Goal INR for first 3 months will be 2-3 then can be reduced to 1.8 for On�X mechanical AVR
- Remains in sinus rhythm on review of telemetry overnight
- continue post op care, OOB/IS
- She has some musculoskeletal tightness especially right trapezius local care
Progress Note - Environmental Solutions Engineer
Subjective
Date of Service: September 15, 2024
Feeling well but having some muscular aches and pains
Objective
Labs:
09/15/24 03:28
09/15/24 03:28
Labs
Hgb 9.8 g/dL (12.0-16.0) L 09/15/24 03:28
Hct 29.6 % (37.0-47.0) L 09/15/24 03:28
Plt Count 259 10^3/uL (130-400) 09/15/24 03:28
PT 24.2 Sec (11.4-14.6) H 09/15/24 03:28
INR 2.15 09/15/24 03:28
APTT 77.6 Sec (23.4-35.0) H 09/15/24 03:28
Sodium 139 mmol/L (135-145) 09/15/24 03:28
Potassium 4.3 mmol/L (3.5-5.1) 09/15/24 03:
BUN 12 mg/dl (7-17) 09/15/24 03:28
Creatinine 0.7 mg/dL (0.6-1.0) 09/15/24 03:28
Glucose 99 mg/dl (70-99) 09/15/24 03:28
Vital Signs and I&O:
Vital Signs
Temp Pulse Resp BP Pulse Ox
97.9 F 84 16 106/65 96
09/15/24 07:00 09/15/24 08:01 09/15/24 07:00 09/15/24 08:01 09/15/24 08:01
Vital Signs
Temp Pulse Resp BP Pulse Ox
97.9 F 84 16 106/65 96
09/15/24 07:00 09/15/24 08:01 09/15/24 07:00 09/15/24 08:01 09/15/24 08:01
Intake & Output
09/13/24 09/14/24 09/15/24 09/16/24
06:59 06:59 06:59 06:59
Intake Total 1445 / 1445 550 / 550 444 / 455
Output Total 1999 2150 / 2150 600 / 600
Balance -555 / -555 -1600 / -1600 -156 / -145
Physical Exam
Physical Exam
General: Well developed, well nourished in NAD.
Heart: Mechanical click, RRR, no murmurs, No S3, S4, no rubs.
Lungs: Decreased breath sounds at the base
Extremities: No clubbing, cyanosis trace to +1 edema bilaterally.
Neuro: Grossly nonfocal, awake, alert and oriented x3.
Musculoskeletal tightness right trapezius
--- NOTE | 2024-09-15 11:00 | PTCARENOTE ---
Pt assisted to bed. CT EPIC SPECIALIST at bedside to remove stopper from groin, orders to place gauze and tegaderm once finished in the shower. Educated on shower. Tele box removed.
--- NOTE | 2024-09-15 12:35 | PTCARENOTE ---
Discharge order received. PIV d/c. Pt's at bedside. All discharge instructions reviewed. Pt and state understanding. All belongings returned to patient. Pt wheeled out to car via wheelchair.
== END 2024-09-15 14:12 | disposition home or self-care (01) | DRG 220 ==
LOC: CVICU 07:32
PROVIDERS: Anesthesiology; Clinical Nurse Specialist Acute Care; Nurse Practitioner; Nurse Practitioner Primary Care; Physician Assistant Medical; ADMITTING PHYSICIAN Thoracic Surgery (Cardiothoracic Vascular Surgery); CONSULT PHYSICIAN Internal Medicine Critical Care Medicine; FAMILY PHYSICIAN Family Medicine
PROC: 5A1221Z Performance of Cardiac Output, Continuous (ICD-10-PCS; 2024-09-09)
PROC: 02RF0JZ Replacement of Aortic Valve with Synthetic Substitute, Open Approach (ICD-10-PCS; 2024-09-09)
PROC: B24BZZ4 Ultrasonography of Heart with Aorta, Transesophageal (ICD-10-PCS; 2024-09-09)
DX: I35.0 Nonrheumatic aortic (valve) stenosis (principal); D62 Acute posthemorrhagic anemia; E87.20 Acidosis, unspecified; J98.11 Atelectasis; E87.1 Hypo-osmolality and hyponatremia; E03.9 Hypothyroidism, unspecified; E28.2 Polycystic ovarian syndrome; I10 Essential (primary) hypertension; I25.10 Atherosclerotic heart disease of native coronary artery without angina pectoris; E83.51 Hypocalcemia; E11.9 Type 2 diabetes mellitus without complications; I77.810 Thoracic aortic ectasia; I44.7 Left bundle-branch block, unspecified; E87.70 Fluid overload, unspecified; R33.8 Other retention of urine; E86.1 Hypovolemia; Z79.84 Long term (current) use of oral hypoglycemic drugs; Z79.899 Other long term (current) drug therapy; Z82.49 Family history of ischemic heart disease and other diseases of the circulatory system
CPT/HCPCS: 88305; 88311; 36415; 71045; 71046; 80048; 80053; 81003; 81015; 81025; 82248; 82330; 82565; 82805; 82810; 82947; 82962; 83036; 83605; 83735; 84132; 84302; 84520; 85014; 85018; 85025; 85027; 85049; 85610; 85730; 86850; 86900; 86901; 86920; 87070; 87086; 93005; 93312; 93320; 93325; 94002; C1713; J2916; P9045; P9047

== ENCOUNTER 2024-11-12 09:41 | Outpatient (RCR) | payer OTHER, SELFPAY | END 2024-11-12 23:59 | disposition home or self-care (01) | LOC: CRHB 09:41 | PROVIDERS: ATTENDING PHYSICIAN Internal Medicine Cardiovascular Disease; FAMILY PHYSICIAN Family Medicine | DX: Z95.2 Presence of prosthetic heart valve (principal) | CPT/HCPCS: 93797; 93798 ==

== ENCOUNTER 2024-11-27 11:30 | Outpatient (RCR) | payer OTHER, SELFPAY | END 2024-11-27 14:09 | disposition home or self-care (01) | LOC: CRHB 11:30 | PROVIDERS: ATTENDING PHYSICIAN Internal Medicine Cardiovascular Disease; FAMILY PHYSICIAN Family Medicine | DX: Z95.2 Presence of prosthetic heart valve (principal) | CPT/HCPCS: 93797; 93798 ==

== ENCOUNTER → 2025-02-13 12:08 | Outpatient (REF) | payer OTHER, SELFPAY | LOC: WDC 12:08 | PROVIDERS: ATTENDING PHYSICIAN Obstetrics & Gynecology Gynecology; FAMILY PHYSICIAN Family Medicine | DX: Z12.31 Encounter for screening mammogram for malignant neoplasm of breast (principal) | CPT/HCPCS: 77063; 77067 ==

== ENCOUNTER → 2025-02-14 09:17 | Outpatient (REF) | payer OTHER, SELFPAY | LOC: RCS 09:17 | PROVIDERS: ATTENDING PHYSICIAN Internal Medicine Cardiovascular Disease; FAMILY PHYSICIAN Family Medicine | DX: Z95.2 Presence of prosthetic heart valve (principal) | CPT/HCPCS: 93306 ==